=== PATIENT | male | born 1995 | race African-American/Black ===

== ENCOUNTER → 2022-10-06 | Outpatient (CLI) | payer MEDICAID, SELFPAY ==
[2022-10-06 23:42] LABS: Bacteria 0 SEEN /hpf (None Seen); Mucous, Urine 0 SEEN /hpf (<or=2+); Squamous Epithelial Cells - UA 0 SEEN /hpf (0-5)
[2022-10-06 23:45] LABS: Color, Urine Yellow (Yellow); Glucose, Dipstick Normal (Normal); Ketone-Dipstick Negative (Negative); Leukocyte Esterase-Dipstick 25 /ul (Negative); Nitrite-Dipstick Negative (Negative); Occult Blood-Urine Negative /ul (Negative); Protein-Dipstick Negative (Negative); Specific Gravity, Urine 1.015 (1.002-1.030); Urine Bilirubin Dipstick Negative (Negative); Urine Clarity Clear (Clear); Urine Urobilinogen Normal (Normal); Urine pH 6.5 (5.0 - 8.0)
[2022-10-06 23:56] LABS: Red Blood Cells-Urine 0-5 SEEN /hpf (0-5); White Blood Cells 0-5 SEEN /hpf (0-5)
[2022-10-07 02:36] LABS: Chlamydia Trachomatis by PCR Negative (Negative); Neisserai gonorrhoeae by PCR Negative (Negative); Probe Check PASS; Sample Adequacy Control PASS; Specimen Processing Control PASS
== END | disposition home or self-care (01) ==
PROVIDERS: Visit Provider Physician Assistant
DX: R36.9 Urethral discharge, unspecified (principal)
CPT/HCPCS: 81001; 87077; 87086; 87088; 87186; 87491; 87591

== ENCOUNTER 2022-12-22 08:26 | Emergency (ER) | payer MEDICAID, SELFPAY ==
[2022-12-22 08:27] VITALS: BP 124/88; PULSE 64; RESP 18; TEMP 36.6; O2SAT 100; BMI 23.1
--- NOTE | 2022-12-22 08:37 | ED.RN ---
pain to left leg. pt does also report pain to left chest and keeps placing hand on it and rubbing it. reports raidiates through left shoulder/upper arm. called for ekg and placed on monitor while waiting to be seen
--- NOTE | 2022-12-22 08:44 | EKG12_ITS ---
Test Reason : Blood Pressure : / mmHG Vent. Rate : 052 BPM Atrial Rate : 052 BPM P-R Int : 142 ms QRS Dur : 098 ms QT Int : 410 ms P-R-T Axes : 011 007 017 degrees QTc Int : 381 ms Sinus bradycardia Otherwise normal ECG Confirmed by ERIKA RUIZ, JESSE ([id number]), editor & co founder TUNG GONZALEZ ([id number]) on 12/23/2022 9:52:57 AM Referred By: STEPHANIE Confirmed By:JESSE JAMES MD
--- NOTE | 2022-12-22 09:23 | EX.ED.DYSGE1 ---
HPI History of Present Illness Chief Complaint: Anxiety Narrative Narrative: 27-year-old male presenting with left leg pain. He describes it in the calf. 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 He states his knees were locked and he started to get lightheaded and dizzy. He did not fall. He does feel like he may have had a panic reaction. He has a distant history of anxiety but is not on any medication. No chest pain or shortness of breath. Otherwise well prior to the incident. [facility] Medical History Urethral discharge in male Allergy/AdvReac Type Severity Reaction Status Date / Time No Known Allergies Allergy Verified 12/22/22 08:41 Social History Smoking Status: Never smoker ROS ROS ED Constitutional Constitutional ED: Denies chills, fever(s) or sweats Eyes Eyes: Denies blurry vision or change in vision ENT ENT ED: Denies ear pain or sore throat Cardiovascular Cardiovascular: Reports palpitations and other Details: Lightheadedness ; Denies racing heartbeat Respiratory/Chest Respiratory/Chest: Denies cough, dyspnea or sputum Gastrointestinal Gastrointestinal: Denies abdominal pain, constipation, diarrhea, nausea or vomiting Genitourinary Genitourinary ED: Denies dysuria, hematuria or urinary frequency Musculoskeletal Musculoskeletal: Denies arthralgias, myalgias or neck pain Integumentary Denies abscess, Abrasions or rash Neurologic Neurologic: Denies headache(s), paresthesias or weakness Psychiatric Psychiatric: Denies anxiety, depression, suicidal ideation or suicidal thoughts Endocrine Endocrinology: Denies polydipsia or polyuria EXAM Physical Exam Const Vital Signs: 12/22/22 08:27 12/22/22 08:39 Temperature 97.8 F Temperature Source Temporal Pulse Rate 64 Respiratory Rate 18 Respiratory Effort Normal Respiratory Pattern Normal Blood Pressure 124/88 H Blood Pressure Mean 100 Pulse Ox 100 Oxygen Delivery Method Room Air General Appearance ED: Negative for pallor HEENT Reports normocephalic, head/scalp atraumatic and moist mucous membranes Eyes PERRL and EOMs intact bilaterally Neck no lymphadenopathy and supple Chest Wall inspection of chest normal and palpation of chest normal Resp normal respiratory effort and clear to auscultation bilaterally Auscultation: Negative for rales, rhonchi or wheezes Cardio regular rate and regular rhythm GI normal to inspection, nondistended, normoactive bowel sounds and non-distended Auscultation: normoactive bowel sounds Palpation: soft Narrative: Deferred Extremity normal to inspection Extremity Narrative: Left calf mildly tender. Pereira is soft. No cords palpated. Patient able to stand and walk without difficulty. General Extremety ED: Negative for edema General Extremity: Negative for edema Neuro oriented x3 and CN's II-XII intact bilaterally Sensorium / Orientation: alert Motor Exam: strength 5/5 throughout Psych mental status grossly normal Attitude: No agitated Skin no rashes or lesions noted and no wounds General Skin Exam: Negative for jaundice or pallor MDM MDM MDM Narrative Medical decision making narrative: 27-year-old male initially felt he was having an anxiety attack. 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 He feels well now he took ibuprofen for the leg pain and it is improving. He had an EKG which showed sinus bradycardia at 52 bpm without sign of ischemic change or dysrhythmia on my interpretation. At this point I do not believe he needs any blood work or imaging. He is stable for discharge. He request a work note. This was provided. Impression: 1 near syncope Lab Data Attestation: I reviewed the patient's lab results. Discharge Plan Triage Chief Complaint: Anxiety ED Provider: Jose De Jesus Stapleton Dx/Rx/DC Orders Instructions: ED Near-Fainting, Uncertain Cause Stand Alone Forms: ED Work / School Excuse Referrals: [facility] [Provider Group] - 3-5 Days Disposition Disposition: Home, Self Care
[2022-12-22 09:35] VITALS: BP 128/74; PULSE 51; RESP 16; O2SAT 99
== END 2022-12-22 09:36 | disposition home or self-care (01) ==
LOC: ED 09:34
PROVIDERS: Emergency Provider Student in an Organized Health Care Education/Training Program; PCP Family Medicine; Visit Provider Student in an Organized Health Care Education/Training Program
DX: R55 Syncope and collapse (principal)
CPT/HCPCS: 93005; 99283

== ENCOUNTER → 2022-12-23 | Outpatient (CLI) | payer MEDICAID, SELFPAY ==
[2022-12-23 17:46] LABS: Absolute Lymphocyte Count 2.39 X10^3/uL (0.83-4.51); Absolute Neutrophil Count 5.2 X10^3/uL (2.0-7.7); Basophil# 0.03 X10^3/uL; Basophil% 0.4 % (0-1); Eosinophil# 0.03 X10^3/uL; Eosinophils% 0.4 % (0-5); Hematocrit 42.3 % (40-54); Hemoglobin 14.3 g/dL (13.0-16.5); Lymphocyte # 2.39 X10^3/ul (0.83-4.51); Lymphocyte % 29.7 % (19-41); Mean Corp Hgb Conc 33.8 g/dL (32-36); Mean Corpuscular Hgb 30.5 pg (27.0-32.0); Mean Corpuscular Volume 90.2 fL (80-94); Mean Platelet Vol. 10.7 fl (6.2-12.0); Monocyte# 0.39 X10^3/uL; Monocyte% 4.8 % (0-10); NRBC Flagged by Analyzer 0 % (0-5); Neutrophil # 5.19 X10^3/uL (2.7-7.7); Neutrophil % 64.5 % (47-70); Platelet Count 282 K/mm3 (150-450); RBC Distribution Width CV 12.1 % (11.6-14.6); RBC Distribution Width SD 39.1 fl (35.1-43.9); Red Blood Count 4.69 M/mm3 (4.6-6.2); White Blood Count 8.1 K/mm3 (4.4-11.0)
[2022-12-23 18:22] LABS: ALB/GLOB Ratio 1.3 RATIO (0.9-2.4); AST(SGOT) 14 U/L (15-37); Alanine Aminotransfer ALT/SGPT 14 U/L (16-61); Albumin, Serum 4.3 g/dL (3.2-5.0); Alkaline Phosphatase 86 U/L (45-117); Anion Gap 5 (5-15); BUN 10 mg/dL (7-18); BUN/Creat Ratio 10.3 RATIO (10-20); Calcium,Total 9.4 mg/dL (8.5-10.1); Chloride 106 mmol/L (98-107); Creatinine, Serum 0.97 mg/dL (0.70-1.30); EST Glomerular Filtration Rate 97 mL/min (>60); Est Glom Filt Rate - Afr Amer 118 mL/min (>60); Globulin 3.3 g/dL (2.2-4.2); Glucose 91 mg/dL (74-106); Potassium 3.9 mmol/L (3.5-5.1); Protein, Total 7.6 g/dL (6.4-8.2); Sodium Level 142 mmol/L (136-145)
== END | disposition home or self-care (01) ==
PROVIDERS: PCP Family Medicine; Visit Provider Family Medicine
DX: Z86.19 Personal history of other infectious and parasitic diseases (principal)
CPT/HCPCS: 36415; 80053; 85025

== ENCOUNTER → 2023-01-27 | Outpatient (CLI) | payer MEDICAID, SELFPAY ==
[2023-01-28 21:07] LABS: HCV Quant. RNA PCR HCV Not Detected IU/mL (.)
== END | disposition home or self-care (01) ==
LOC: MFPLAB 10:17
PROVIDERS: PCP Family Medicine; Visit Provider Family Medicine
DX: Z86.19 Personal history of other infectious and parasitic diseases (principal)
CPT/HCPCS: 36415; 87522

== ENCOUNTER → 2023-02-21 | Outpatient (CLI) | payer MEDICAID, SELFPAY ==
--- NOTE | 2023-02-21 08:53 | US_ITS ---
STUDY: ABDOMINAL ULTRASOUND - RIGHT UPPER QUADRANT REASON FOR VISIT: Male, 27 years old History Hep C -- -- w/ elastography TECHNIQUE: Ultrasound evaluation of the right upper quadrant was performed with real-time and static marroquin-scale imaging. TECHNICAL QUALITY: Adequate. COMPARISON: None. FINDINGS: Liver: The liver measures 14.5 cm. There is normal echogenicity of the liver. The bile ducts are within normal limits. There is hepatic color flow. The direction of portal flow is hepatopetal. There is no demonstrated mass lesion. Gallbladder: Normal distended gallbladder. The gallbladder wall measures 1.2 mm. There is a negative sonographic Moscoso''s sign. There is no pericholecystic fluid. There are no gallstones. Multiple small gallbladder polyps are seen. The largest measures 7 mm x 7 mm x 5 mm. Common Bile Duct (C.B.D.): The common bile duct measures 3.7 mm. Pancreas: Normal size of the head, body and tail of the pancreas. There is normal echogenicity of the pancreas. There is no demonstrated pancreatic mass or cyst. Right Kidney: Normal size of the right kidney. The right kidney measures 10 cm x 5.3 cm x 5 cm. Normal renal cortex. The right cortex measures 1.5 cm. There is no demonstrated renal mass or cyst. There is no right hydronephrosis. US/Abdomen Limited IMPRESSION: Multiple small gallbladder polyps. Electronically Signed: Benji Rowe MD at 9:56 EDT ,
--- NOTE | 2023-02-21 08:54 | US_ITS ---
STUDY: ABDOMINAL ULTRASOUND - ELASTOGRAPHY REASON FOR VISIT: Male, 27 years old. History of hepatitis C. TECHNIQUE: Liver stiffness measurements were obtained on a FireID RS 85 ultrasound machine using a CA 1-7 probe following the SRU guidelines. 3 measurements were obtained using a 2-D-SWE method. TheIQR/M was 22% suggesting a quality data set. TECHNICAL QUALITY: Adequate. COMPARISON: Comparison is made with prior study done earlier in the day. FINDINGS: Liver: There is no demonstrated mass lesion. Median liver stiffness measured 7.8 kPa. Abdomen: There is no demonstrated mass lesion. US/Elastography Parenchyma/Organ IMPRESSION: Liver stiffness measures 7.8 kPa compatible with F2-F3 (Mild to moderate liver fibrosis) Metavir score. Electronically Signed: Benji Rowe MD at 10:06 EDT ,
== END | disposition home or self-care (01) ==
LOC: US 08:52
PROVIDERS: PCP Family Medicine; Referring Provider Family Medicine; Visit Provider Family Medicine
DX: Z86.19 Personal history of other infectious and parasitic diseases (principal)
CPT/HCPCS: 76705; 76981

== ENCOUNTER → 2023-03-03 | Outpatient (CLI) | payer MEDICAID, SELFPAY ==
[2023-03-03 15:33] LABS: Absolute Lymphocyte Count 1.87 X10^3/uL (0.83-4.51); Absolute Neutrophil Count 5.6 X10^3/uL (2.0-7.7); Basophil# 0.04 X10^3/uL; Basophil% 0.5 % (0-1); Eosinophil# 0.02 X10^3/uL; Eosinophils% 0.2 % (0-5); Hematocrit 45.6 % (40-54); Hemoglobin 15.2 g/dL (13.0-16.5); Lymphocyte # 1.87 X10^3/ul (0.83-4.51); Lymphocyte % 23.2 % (19-41); Mean Corp Hgb Conc 33.3 g/dL (32-36); Mean Corpuscular Hgb 30.5 pg (27.0-32.0); Mean Corpuscular Volume 91.4 fL (80-94); Mean Platelet Vol. 10.6 fl (6.2-12.0); Monocyte# 0.54 X10^3/uL; Monocyte% 6.7 % (0-10); NRBC Flagged by Analyzer 0 % (0-5); Neutrophil # 5.56 X10^3/uL (2.7-7.7); Neutrophil % 69.2 % (47-70); Platelet Count 317 K/mm3 (150-450); RBC Distribution Width SD 40.3 fl (35.1-43.9); Red Blood Count 4.99 M/mm3 (4.6-6.2); White Blood Count 8.1 K/mm3 (4.4-11.0)
[2023-03-03 16:07] LABS: ALB/GLOB Ratio 1.3 RATIO (0.9-2.4); AST(SGOT) 10 U/L (15-37); Alanine Aminotransfer ALT/SGPT 24 U/L (16-61); Albumin, Serum 4.4 g/dL (3.2-5.0); Alkaline Phosphatase 80 U/L (45-117); Anion Gap 4 (5-15); BUN 9 mg/dL (7-18); BUN/Creat Ratio 8.9 RATIO (10-20); Calcium,Total 9.6 mg/dL (8.5-10.1); Chloride 107 mmol/L (98-107); Creatinine, Serum 1.01 mg/dL (0.70-1.30); EST Glomerular Filtration Rate 93 mL/min (>60); Est Glom Filt Rate - Afr Amer 112 mL/min (>60); Globulin 3.4 g/dL (2.2-4.2); Glucose 73 mg/dL (74-106); Potassium 4.5 mmol/L (3.5-5.1); Protein, Total 7.8 g/dL (6.4-8.2); Sodium Level 141 mmol/L (136-145); Thyroid Stim Hormone (TSH) 1.28 uIU/mL (0.358-3.74)
== END | disposition home or self-care (01) ==
LOC: MTLAB 12:45
PROVIDERS: PCP Family Medicine; Referring Provider Family Medicine; Visit Provider Family Medicine
DX: R42 Dizziness and giddiness (principal)
CPT/HCPCS: 36415; 80053; 84443; 85025

== ENCOUNTER 2023-03-12 16:54 | Emergency (ER) | payer MEDICAID, SELFPAY ==
[2023-03-12 16:55] VITALS: BP 127/87; PULSE 64; RESP 16; TEMP 36.6; O2SAT 99; BMI 22.4
--- NOTE | 2023-03-12 18:31 | EDS_ITS ---
HPI History of Present Illness Chief Complaint: Lower Extremity Injury [facility] Medical History Urethral discharge in male Allergy/AdvReac Type Severity Reaction Status Date / Time No Known Allergies Allergy Verified 03/12/23 16:56 Social History Smoking Status: Never smoker EXAM Physical Exam Const Vital Signs: 03/12/23 16:55 Temperature 98 F Temperature Source Temporal Pulse Rate 64 Respiratory Rate 16 Blood Pressure 127/87 H Blood Pressure Mean 100 Pulse Ox 99 Oxygen Delivery Method Room Air MDM [facility] MDM Narrative Medical decision making narrative: HISTORY OF PRESENT ILLNESS: 27-year-old male here for left calf muscle pain. The patient states Patient denies active cancer, being bedridden for greater than 3 days, denies unilateral leg swelling, denies any varicose veins, denies any calf tenderness, denies any edema. Denies major surgery within 12 weeks, recent paralysis, previous DVT. REVIEW OF SYSTEMS: Pertinent positives: Left calf pain Pertinent negatives: PHYSICAL EXAM: Nursing triage notes reviewed, Vital signs reviewed Constitutional: please see mdm HENT: MMM Eyes: Pupils equal round and reactive to light, Extraocular muscles intact Neck: No stridor, no JVD, full neck ROM Lungs: Clear to auscultation, No wheezing or rales. No increased work of breathing, no conversational dyspnea, no accessory muscle use, no nasal flaring. No respiratory distress noted Heart: Regular rate and rhythm, No murmurs, No rubs and No gallops, 2+ distal pulses (radial, femoral, posterior tibial) in all extremities Abdomen: Soft, there is no tenderness, rigidity, rebound or guarding, no obvious peritoneal signs, no palpable pulsatile abdominal masses, no auscultated abdominal bruit : No CVAT Extremities: No edema Neuro: No focal neurological deficits, cranial nerves II through XII intact, 5/5 strength in all extremities. Intact sensation to light touch in all extremities, 2+ reflexes bilateral patella tendons. Normal gait. No ataxia. Skin: No rash or lesions noted MEDICAL DECISION MAKING: Chief Complaint: External records reviewed: No recent advanced imaging of the involved extremity MDM Narrative: Patient was hemodynamically stable, afebrile, nontoxic-appearing. Exam I considered the following differential diagnosis: Factors affecting care: None Social determinants of health: Never smoker History obtained from others: Shared decision making: I will have a discussion with the patient and or visitors regarding risk/benefits of further testing or admission. They will be made aware of of the risk/benefits inherent in this decision they will be given the opportunity to voice understanding. Consults: Discharge Plan Triage Chief Complaint: Lower Extremity Injury ED Provider: Keegan Engle Dx/Rx/DC Orders Primary Care Provider: Jayy Malagon Referrals: Jayy Malagon MD [Primary Care Provider] -
--- NOTE | 2023-03-12 18:31 | EX.ED.DYSGE1 ---
HPI History of Present Illness Chief Complaint: Lower Extremity Injury [facility] Medical History Urethral discharge in male Allergy/AdvReac Type Severity Reaction Status Date / Time No Known Allergies Allergy Verified 03/12/23 16:56 Social History Smoking Status: Never smoker EXAM Physical Exam Const Vital Signs: 03/12/23 16:55 Temperature 98 F Temperature Source Temporal Pulse Rate 64 Respiratory Rate 16 Blood Pressure 127/87 H Blood Pressure Mean 100 Pulse Ox 99 Oxygen Delivery Method Room Air MDM MDM MDM Narrative Medical decision making narrative: HISTORY OF PRESENT ILLNESS: 27-year-old male here for left calf muscle pain. The patient states Patient denies active cancer, being bedridden for greater than 3 days, denies unilateral leg swelling, denies any varicose veins, denies any calf tenderness, denies any edema. Denies major surgery within 12 weeks, recent paralysis, previous DVT. REVIEW OF SYSTEMS: Pertinent positives: Left calf pain Pertinent negatives: No chest pain, shortness of breath PHYSICAL EXAM: Nursing triage notes reviewed, Vital signs reviewed Constitutional: please see mdm Extremities: No edema, no unilateral leg swelling. No obvious calf tenderness. There was some mild tenderness over the left Achilles tendon. Negative Homans' sign, negative Issa sign. Neuro: Intact sensation L1-S1 dermatomal distributions. Intact 5/5 strength in hip flexion (T12-L3). Knee extension (L2-L4). Ankle dorsiflexion (L4-L5). Ankle plantar flexion (S1). Great toe extension (L5). 2+ patellar and Achilles DTRs. Skin: No rash or lesions noted MEDICAL DECISION MAKING: Chief Complaint: Calf pain External records reviewed: No recent advanced imaging of the involved extremity MDM Narrative: Patient was hemodynamically stable, afebrile, nontoxic-appearing. Exam without stigmata of DVT or PE I considered the following differential diagnosis: DVT, gastrocnemius strain, Achilles tendinitis I obtained ultrasound showed no evidence of DVT. Patient likely suffered from Achilles tendinitis versus gastrocnemius or soleus muscle strain. Gave NSAID instructions and return precautions. Factors affecting care: None Social determinants of health: Never smoker History obtained from others: Shared decision making: I will have a discussion with the patient and or visitors regarding risk/benefits of further testing or admission. They will be made aware of of the risk/benefits inherent in this decision they will be given the opportunity to voice understanding. Consults: None Discharge Plan Triage Chief Complaint: Lower Extremity Injury ED Provider: Keegan Engle Dx/Rx/DC Orders Clinical Impression: Achilles tendinitis, Gastrocnemius muscle strain Instructions: ED Muscle Strain, Extremity Primary Care Provider: Jayy Malagon Referrals: Jayy Malagon MD [Primary Care Provider] - Activity Restrictions/Additional Instructions: Thank you for trusting us with your care today! Please take Tylenol (2 pills, 650 mg), ibuprofen (2 pills, 400 mg) every 6 hours as needed for pain and fever control. Please return to the emergency department if your symptoms change or worsen. Please follow with your primary care physician for further outpatient evaluation and management. Disposition Disposition: Home, Self Care
--- NOTE | 2023-03-12 19:00 | US_ITS ---
INDICATION: LT CALF PAIN EXAMINATION: US Venous Duplex LE Unilat / Limited TECHNIQUE: Ott scale, pulse wave, and color flow Doppler imaging was performed of the lower extremity venous system. The left greater saphenous, common femoral, femoral, and popliteal veins were interrogated. COMPARISON: None. FINDINGS: There is normal compression, augmentation, and signal throughout the visualized deep lower extremity veins. No mass or fluid collection. US/Venous Duplex Imag/Limited/Uni IMPRESSION: No sonographic evidence of deep venous thrombosis. Electronically Signed: Michael Bird MD at 19:57 EDT ,
== END 2023-03-12 20:34 | disposition home or self-care (01) ==
PROVIDERS: Emergency Provider Emergency Medicine; PCP Family Medicine; Visit Provider Emergency Medicine
DX: M76.62 Achilles tendinitis, left leg (principal); S86.112A Strain of other muscle(s) and tendon(s) of posterior muscle group at lower leg level, left leg, initial encounter; X58.XXXA Exposure to other specified factors, initial encounter
CPT/HCPCS: 93971; 99282

== ENCOUNTER 2023-10-31 17:02 | Emergency (ER) | payer MEDICAID, SELFPAY ==
[2023-10-31 17:03] VITALS: PULSE 67; RESP 18; TEMP 36.2; O2SAT 98; BMI 24.3
--- NOTE | 2023-10-31 17:49 | EDS_ITS ---
HPI <KALIN Melendez - Last Filed: 10/31/23 18:19> History of Present Illness Chief Complaint: Laceration Narrative Narrative: Patient presenting today due to a laceration to his right index finger. He reports that he was cutting a box with a pair scissors and partially went through his fingernail. He is not on any blood thinners, tetanus is not up-to-date. He denies any other injury. PFSH <KALIN Melendez - Last Filed: 10/31/23 18:19> [facility] Medical History Urethral discharge in male Allergy/AdvReac Type Severity Reaction Status Date / Time No Known Allergies Allergy Verified 10/31/23 17:02 Social History Smoking Status: Never smoker ROS <KALIN Melendez - Last Filed: 10/31/23 18:19> ROS ED Constitutional Constitutional ED: Denies chills or fever(s) Cardiovascular Cardiovascular: Denies chest pain Respiratory/Chest Respiratory/Chest: Denies cough or dyspnea Gastrointestinal Gastrointestinal: Denies abdominal pain, nausea or vomiting Musculoskeletal Musculoskeletal: Denies arthralgias or myalgias Integumentary Reports laceration Neurologic Neurologic: Denies weakness EXAM <KALIN Melendez - Last Filed: 10/31/23 18:19> Physical Exam Const Vital Signs: 10/31/23 17:03 Temperature 97.1 F L Temperature Source Temporal Pulse Rate 67 Respiratory Rate 18 Pulse Ox 98 Oxygen Delivery Method Room Air Positive well nourished, well developed and no apparent distress General Appearance ED: well developed HEENT Reports normocephalic and head/scalp atraumatic Mouth ED: Yes moist mucous membranes normal Eyes PERRL and EOMs intact bilaterally Neck full ROM and supple Chest Wall inspection of chest normal Resp normal respiratory effort and clear to auscultation bilaterally Cardio regular rate and regular rhythm GI soft to palpation, non-tender, non-distended and no masses Back/Spine normal ROM and normal to inspection Extremity full ROM Extremity Narrative: Small 0.25 cm linear laceration to the right second fingernail, no bleeding, no laceration to the fingertip. Neuro oriented x3, CN's II-XII intact bilaterally, moves all extremities, no focal motor deficits and no sensory deficits noted Sensorium / Orientation: awake and alert Psych mental status grossly normal and thought process normal Skin no rashes or lesions noted and no wounds <Josue Seymour MD - Last Filed: 10/31/23 18:30> Physical Exam Const Vital Signs: 10/31/23 17:03 Temperature 97.1 F L Temperature Source Temporal Pulse Rate 67 Respiratory Rate 18 Pulse Ox 98 Oxygen Delivery Method Room Air [facility] <KALIN Melendez - Last Filed: 10/31/23 18:19> [facility] Narrative Medical decision making narrative: Patient presenting due to laceration to his right index finger. He has a small cut through the tip of the fingernail, no active bleeding, no laceration to the fingertip. No nail avulsion. Tetanus will be updated. The fingernail does not need to be removed, patient's fingertip and nail were cleaned with an alcohol wipe and a small amount of Dermabond was applied to the nail. Patient has been educated on signs of infection to look out for and reasons to return. He will be discharged home in stable condition and is comfortable with plan. <Josue Seymour MD - Last Filed: 10/31/23 18:30> [facility] Narrative Medical decision making narrative: Patient presenting due to laceration to his right index finger. He has a small cut through the tip of the fingernail, no active bleeding, no laceration to the fingertip. No nail avulsion. Tetanus will be updated. The fingernail does not need to be removed, patient's fingertip and nail were cleaned with an alcohol wipe and a small amount of Dermabond was applied to the nail. Patient has been educated on signs of infection to look out for and reasons to return. He will be discharged home in stable condition and is comfortable with plan. Dr. Seymour: I have personally performed a face to face assessment of the patient and have reviewed the PAPO Note. I performed a substantive portion of the visit including all aspects of the following. My lennon findings include: History is laceration to tip of right index finger nail with a jukebox checker Exam is GCS 15. ABCs intact. 0.5 cm laceration or less to tip of right index finger/fingernail, no active bleeding. No large subungual hematoma. Medical Decision Making: Update tetanus immunization. Cleanse wound, closed with Dermabond to keep nail together. Patient informed of risk of irregular nail growing out over laceration and nailbed. I do not feel that suturing is indicated or nail removal. Follow-up primary care. Disposition is discharged home in stable condition. Other additions or changes: [None] History & Record Review Discussion w/independent historian: Patient Discharge Plan Triage Chief Complaint: Laceration ED Midlevel Provider: Linnea Metcalf ED Provider: Josue Seymour Dx/Rx/DC Orders Clinical Impression: Laceration Instructions: ED Laceration, Skin Adhesive Primary Care Provider: Otilia Bailey Referrals: Jayy Malagon MD [Med Staff - Chief Operator Reformer] - As Needed Activity Restrictions/Additional Instructions: Return or follow-up with your PCP for any signs of infection. Disposition Disposition: Home, Self Care Discharge Date/Time: 10/31/23 18:07
[2023-10-31] MEDS: Diphth,Pertuss(Acell),Tet Vac 0.5 ML Vial IM (17:59)
--- OUTSIDE RECORDS SUMMARY | 2023-10-31 18:04 | XMS RPT_ITS | CCD ---
Author Name Unknown Address [address] [place] [address] Organization [facility] Care Team Providers Care Bacteriologist Pharmaceutical Name Role Phone Inocencio Christianson Unavailable [phone] No, Physician Primary Care Provider Unavailabl e No, Physician Primary Care Provider Unavailabl e NO, PHYSICIAN Primary Care Unavailable OTILIO MENDOZA Attending Unavailab le No, Physician Primary Care Provider Unavailabl e KAY ANGULO Attending Unavailable LUCERO HILLIARDOTHY F Referring Unavailable INGE JENKINS Attending Unavailable SELF, SELF Referring Unavailable KAY ANGULO Attending Unavailable KAY ANGULO Referring Unavailable KAY ANGULO Attending Unavailable MARTÍN ZAIN Primary Care Unavailable SELF, SELF Referring Unavailable KAY ANGULO Attending Unavailable HILLIARD, MUSA F Referring Unavailable MARTÍNZAIN RODRIGUEZ Attending Unavailable NO, PHYSICIAN Primary Care Unavailable DUNCAN CONNOLLY Primary Care Unavailable MARTÍNZAIN RODRIGUEZ Attending Unavailable DUNCAN CONNOLLY Primary Care Unavailable MARTÍNZAIN Attending Unavailable MARTÍNZAIN RODRIGUEZ Attending Unavailable MARTÍN, ZAIN Referring Unavailable DUNCAN CONNOLLY Primary Care Unavailable DUNCAN CONNOLLY Primary Care Unavailable ZAIN RESENDIZ Admitting Unavailable SATNAM ANDRADE Attending Unavailable DUNCAN CONNOLLY Primary Care Unavailable DUNCAN CONNOLLY Primary Care Unavailable LIANA LUCAS Attending Unavailable Medications Current Medications Medication Drug Class(es) Dates Sig (Normalized) Sig (Original) [id number] 200 actuat albuterol 0.09 mg/actuat metered dose inhaler (2 sources) beta2-Adrenergic Agonist Start: 09-01-2020 End: 09-01-2021 take 2 puff(s) by inhalation every six hours as needed albuterol 90 mcg/actuation inhaler Indications: COVID-19 Inhale 2 (two) puffs every 6 (six) hours as needed . 1 Inhaler 0 09/01/2020 09/01/2021 Active albuterol 90 mcg/actuation inhaler (7 sources) Start: 09-01-2020 End: 09-01-2021 take 2 puff(s) by inhalation every six hours as needed albuterol 90 mcg/actuation inhaler Indications: COVID-19 Inhale 2 (two) puffs every 6 (six) hours as needed . 1 Inhaler 0 09/01/2020 09/01/2021 Active amoxicillin 875 mg oral tablet (1 source) Penicillin-class Antibacterial Start: 05-12-2020 End: 05-22-2020 take 1 tablet by mouth twice daily amoxicillin (AMOXIL) 875 MG tablet Indications: Strep pharyngitis Take 1 (one) tablet (875 mg total) by mouth 2 (two) times a day for 10 days . 20 tablet 0 05/12/2020 05/22/2020 Active cyclobenzaprine hydrochloride 10 mg oral tablet (1 source) Muscle Relaxant Start: 10-16-2020 End: 10-21-2020 take 1 tablet by mouth three times daily cyclobenzaprine (FLEXERIL) 10 MG tablet Take 1 (one) tablet (10 mg total) by mouth 3 (three) times a day for 15 doses . 15 tablet 0 10/16/2020 10/21/2020 Active dexamethasone 1 mg/ml / tobramycin 3 mg/ml ophthalmic suspension (4 sources) Aminoglycoside Antibacterial, Corticosteroid Start: 12-31-2020 take 1 drop(s) into the eye(s) three times daily tobramycin-dexameth asone (TOBRADEX) 0.3-0.1 % ophthalmic suspension INSTILL 1 DROP INTO AFFECTED EYE 3 TIMES A DAY 0 12/31/2020 Active fluconazole 150 mg oral tablet (2 sources) Azole Antifungal Start: 01-13-2021 End: 01-13-2021 take 1 tablet by mouth once fluconazole (DIFLUCAN) 150 MG tablet Indications: Urethritis Take 1 (one) tablet (150 mg total) by mouth once for 1 dose . 1 tablet 0 01/13/2021 01/13/2021 Active fluticasone propionate 0.05 mg/actuat metered dose nasal spray (9 sources) Corticosteroid Start: 09-01-2020 End: 09-01-2021 take 2 spray(s) nasal route once daily fluticasone propionate (FLONASE) 50 mcg/actuation nasal spray Indications: COVID-19 Instill 2 (two) sprays into each nostril daily . 16 g 0 09/01/2020 09/01/2021 Active loteprednol etabonate 5 mg/ml ophthalmic suspension (3 sources) Start: 02-07-2021 take 1 drop(s) into the eye(s) three times daily loteprednol (LOTEMAX) 0.5 % ophthalmic suspension Indications: Allergic conjunctivitis of right eye Administer 1 (one) drop to the right eye 3 (three) times a day . 5 mL 0 02/07/2021 Active olopatadine 1 mg/ml ophthalmic solution (6 sources) Histamine-1 Receptor Inhibitor Start: 01-07-2021 olopatadine (PATANOL) 0.1 % ophthalmic solution predniSONE 20 mg oral tablet (1 source) Start: 10-16-2020 End: 10-21-2020 take 2 tablets by mouth once daily predniSONE (Deltasone) 20 MG tablet Take 2 (two) tablets (40 mg total) by mouth daily for 5 days . 10 tablet 0 10/16/2020 10/21/2020 Active Completed/Discontinued Medications Medication Drug Class(es) Dates Sig (Normalized) Sig (Original) fluorometholone acetate 1 mg/ml ophthalmic suspension (3 sources) Corticosteroid Start: 02-06-2021 End: 02-07-2021 take 1 drop(s) into the eye(s) three times daily fluorometholone (EFLONE) 0.1 % ophthalmic suspension Indications: Allergic conjunctivitis of right eye Administer 1 (one) drop to both eyes 3 (three) times a day . 5 mL 0 02/06/2021 02/07/2021 Discontinued (Cost of medication) Problems Problem Classification Problem Date Documented Date Episodic/Chronic Bacterial infection; unspecified site (2 sources) Other specified bacterial agents as the cause of diseases classified elsewhere; Translations: [Other specified bacterial agents as the cause of diseases classified elsewhere] Onset: 08-10-2022 Episodic Genitourinary symptoms and ill-defined conditions (1 source) Dysuria; Translations: [Dysuria] Episodic Immunizations and screening for infectious disease (1 source) Contact with and (suspected) exposure to other viral communicable diseases; Translations: [Close Exposure to Covid-19 Virus] Episodic Inflammation; infection of eye (except that caused by tuberculosis or sexually transmitteddisease) (1 source) Allergic conjunctivitis of right eye; Translations: [Acute atopic conjunctivitis, right eye] Episodic Inflammation; infection of eye (except that caused by tuberculosis or sexually transmitteddisease) (2 sources) Allergic conjunctivitis of right eye; Translations: [Allergic conjunctivitis of right eye] Nonmalignant breast conditions (2 sources) Pain of breast; Translations: [Discharge from nipple] Episodic Other circulatory disease (2 sources) Elevated blood pressure; Translations: [Elevated blood pressure reading] Episodic Other nervous system disorders (1 source) Paresthesia of upper limb; Translations: [Numbness and tingling in left arm] Episodic Other upper respiratory infections (2 sources) Chronic sinusitis, unspecified; Translations: [Chronic sinusitis, unspecified] Onset: 08-18-2022 Chronic Other upper respiratory infections (2 sources) Pharyngitis; Translations: [Streptococcal sore throat] Episodic Spondylosis; intervertebral disc disorders; other back problems (1 source) Cervical radiculopathy; Translations: [Cervical radiculopathy] Chronic Unclassified (1 source) COVID-19; Translations: [COVID-19] Urinary tract infections (2 sources) Urethritis; Translations: [Urethritis] Episodic Viral infection (1 source) Viral disease; Translations: [Viral illness] Episodic Results Test Name Value Interpretation Reference Range Facil ity Vital Signs Date Time Vital Sign Value Performing Clinician Faci lity 01-13-2021 13:39-0400 BMI (Body Mass Index) 27.52 kg/m2 Satnam [facility] 01-13-2021 13:39-0400 Body Temperature 98.01 [degF] [facility] 01-13-2021 13:39-0400 Body weight 82.1 kg [facility] 01-13-2021 13:39-0400 BP Diastolic 93 mm[Hg] [facility] 01-13-2021 13:39-0400 BP Systolic 140 mm[Hg] Satnam [facility] 01-13-2021 13:39-0400 Pulse (Heart Rate) 77 /min [facility] 01-13-2021 13:39-0400 Pulse Oximetry 97 % [facility] 01-13-2021 13:39-0400 Respiratory Rate 16 /min Satnam Andrade [facility] 10-16-2020 15:49-0500 BMI (Body Mass Index) 26.3 kg/m2 Rodger [facility] 10-16-2020 15:49-0500 Body Temperature 97.7 [degF] [facility] 10-16-2020 15:49-0500 Body weight 78.47 kg [facility] 10-16-2020 15:49-0500 BP Diastolic 95 mm[Hg] [facility] 10-16-2020 15:49-0500 BP Systolic 146 mm[Hg] [facility] 10-16-2020 15:49-0500 Height 172.7 cm [facility] 10-16-2020 15:49-0500 Pulse (Heart Rate) 69 /min [facility] 10-16-2020 15:49-0500 Pulse Oximetry 98 % [facility] 10-16-2020 15:49-0500 Respiratory Rate 16 /min [facility] 10-16-2020 15:29-0500 BMI (Body Mass Index) 28.29 kg/m2 Alondra Santana [facility] 10-16-2020 15:29-0500 Body Temperature 98.1 [degF] Alondrashana Santana [facility] 10-16-2020 15:29-0500 Body weight 77.11 kg Alondrashana Santana [facility] 10-16-2020 15:29-0500 BP Diastolic 95 mm[Hg] Alondra Santana [facility] 10-16-2020 15:29-0500 BP Systolic 153 mm[Hg] Alondra Santana [facility] 10-16-2020 15:29-0500 Height 165.1 cm Alondrashana Santana [facility] 10-16-2020 15:29-0500 Pulse (Heart Rate) 69 /min Alondrashana Santana [facility] 10-16-2020 15:29-0500 Pulse Oximetry 95 % Alondra Santana [facility] 10-16-2020 15:29-0500 Respiratory Rate 18 /min Alondra Santana [facility] 09-01-2020 18:08-0500 BMI (Body Mass Index) 25.85 kg/m2 Alisa Nobles [facility] 09-01-2020 18:08-0500 Body Temperature 98.49 [degF] Alisa Nobles [facility] 09-01-2020 18:08-0500 Body weight 77.11 kg Alisaelisa Nobles [facility] 09-01-2020 18:08-0500 BP Diastolic 87 mm[Hg] Alisaelisa Nobles [facility] 09-01-2020 18:08-0500 BP Systolic 138 mm[Hg] [facility] 18:08-0500 Pulse (Heart Rate) 70 /min [facility] 09-01-2020 18:08-0500 Pulse Oximetry 97 % [facility] 09-01-2020 18:08-0500 Respiratory Rate 18 /min [facility] 05-12-2020 12:03-0400 BMI (Body Mass Index) 24.33 kg/m2 [facility]12-2020 12:03-0400 Body Temperature 98.29 [degF] [facility]-12-2020 12:03-0400 Body weight 72.[address] [facility] 05-12-2020 12:03-0400 Pulse (Heart Rate) 84 /min [facility] 05-12-2020 12:03-0400 Pulse Oximetry 98 % [facility] 05-12-2020 12:03-0400 Respiratory Rate 16 /min [facility] 01-29-2020 16:00-0400 BMI (Body Mass Index) 25.85 kg/m2 Sherrie Solorio [facility] 01-29-2020 16:00-0400 Body Temperature 97.9 [degF] Sherrie Solorio [facility] 01-29-2020 16:00-0400 Body weight 77.11 kg Sherrie Solorio [facility] 01-29-2020 16:00-0400 BP Diastolic 91 mm[Hg] Sherrie Solorio [facility] 01-29-2020 16:00-0400 BP Systolic 142 mm[Hg] Sherrie Solorio [facility] 01-29-2020 16:00-0400 Height 172.7 cm Sherrie Solorio [facility] 01-29-2020 16:00-0400 Pulse (Heart Rate) 72 /min Sherrie Solorio [facility] 01-29-2020 16:00-0400 Pulse Oximetry 100 % Sherrie Solorio [facility] 01-29-2020 16:00-0400 Respiratory Rate 17 /min Sherrie Solorio [facility] 03-03-2019 17:40-0400 BMI (Body Mass Index) 26.61 kg/m2 Guillaume Loyd [facility] 03-03-2019 17:40-0400 Body Temperature 97.9 [degF] Guillaume Loyd [facility] 03-03-2019 17:40-0400 BP Diastolic 98 mm[Hg] Guillaume Loyd [facility] 03-03-2019 17:40-0400 BP Systolic 148 mm[Hg] Guillaume Loyd [facility] 03-03-2019 17:40-0400 Height 172.7 cm Guillaume Loyd [facility] 03-03-2019 17:40-0400 Pulse (Heart Rate) 73 /min Guillaumecade Loyd [facility] 03-03-2019 17:40-0400 Pulse Oximetry 99 % Guillaumecade Loyd [facility] 03-03-2019 17:40-0400 Respiratory Rate 18 /min Guillaumecade Loyd [facility] 03-03-2019 17:40-0400 Weight 79.38 kg Guillaume Loyd [facility] 04-30-2018 15:12-0400 BMI (Body Mass Index) 22.09 kg/m2 Alisa Camarillo [facility] 04-30-2018 15:12-0400 Body Temperature 98.2 [degF] Alisaelisa Camarillo [facility] 04-30-2018 15:12-0400 BP Diastolic 80 mm[Hg] [facility]-2018 15:12-0400 BP Systolic 125 mm[Hg] [facility] 04-30-2018 15:12-0400 Height 172.7 cm [facility] 04-30-2018 15:12-0400 Pulse (Heart Rate) 57 /min [facility] 04-30-2018 15:12-0400 Pulse Oximetry 98 % Alisaelisa Camarillo [facility] 04-30-2018 15:12-0400 Respiratory Rate 16 /min Alisaelisa Camarillo [facility] 04-30-2018 15:12-0400 Weight 65.9 kg [facility] En[facility]ters Encounter Date Encounter Type Care Provider Facility Start: 08-18-2022 End: 08-18-2022 ambulatory SATNAM ANDRADE [facility] Start: 08-10-2022 End: 08-10-2022 ambulatory DUNCAN CONNOLLY [facility] Start: 06-03-2022 End: 06-03-2022 ambulatory [facility] Start: 05-26-2022 End: 05-30-2022 ambulatory [facility]UNCAN [facility] Start: 02-25-2022 End: 02-25-2022 ambulatory [facility]UNCAN [facility] Start: 01-27-2022 End: 01-28-2022 ambulatory [facility] RESENDIZ [facility] Start: 01-23-2022 ambulatory KAY ANGULO Facilit y:[facility] Start: 12-13-2021 End: 12-13-2021 [facility] Start: 09-18-2021 ambulatory KAY ANGULO Facilit y:[facility] Start: 08-23-2021 ambulatory INGE JENKINS Facil ity:[facility] Start: 08-19-2021 ambulatory KAY ANGULO Facilit y:[facility] Start: 08-19-2021 ambulatory KAY ANGULO Facilit y:[facility] Start: 02-27-2021 End: 02-27-2021 Transcribe Orders Janneth Ma MA [facility] Procedures Date Procedure Procedure Detail Performing Clinician Start: 09-01-2020 Influenzavirus antib liudmila assay Alisa Nobles Work Phone: Start: 09-01-2020 COVID-19, MOLECULAR Chr fiordaliza Nobles Work Phone: Start: 01-29-2020 Streptococcus pyogen es Ag [Presence] in Throat Sherrie Qureshikristie Solorio Work Phone: Plan of Treatment Date Care Activity Detail Author Start: 06-26-2021 Influenza vaccination Sequential Influenza Vaccine (Season Ended) [facility] Start: 02-20-2021 End: 02-20-2021 Patient encounter procedure 02/20/2021 Office Visit Ophthalmology Otilio Mendoza DO [address] [place] [address] [phone] [facility] Start: 02-13-2021 End: 02-13-2021 Office Visit 02/13/2021 Office Visit Ophthalmology Otilio Mendoza, DO [address] [facility] [place] [address] [phone] [facility] Start: 06-26-2020 Influenza vaccination Sequential Influenza Vaccine (#1) [facility] Start: 06-26-2020 Influenza vaccination given Sequential Influenza Vaccine (#1) [facility] Start: 05-17-2017 Tetanus vaccination Tetanus: Every 10yrs [facility] Start: 2011 Hepatitis C antibody, confirmatory test Hepatitis C Screening [facility] Start: 2011 Hepatitis C screening Hepatitis C Screening [facility] Start: 2009 COVID-19 Vaccine (1) [facility]ine [facility] Start: 2008 HIV screening HIV Screening [facility] Start: 2005 Adolescent depression screening assessment Depression Screening (PHQ9) [facility] Start: 2005 Depression screening using PHQ-9 (Patient Health Questionnaire 9) score Depression Screening (PHQ9) [facility] Start: 1996 History and physical examination, annual for health maintenance Wellness Visit [facility] Start: 1993 Tetanus vaccination Tetanus: Every 10yrs [facility] Chlamydia trachomati s rRNA assay Chlamydia/GC/Trichomona s Amplified RNA Microbiology Routine Urethritis Ordered: 01/13/2021 [facility] Payers Date Payer Category Payer Medicaid [employer] MED[employer] [facility] MEDICAID [id number] 2021-Present [id number] 2020 Medicaid [employer] [facility] [facility] [id number] 2020-Present [id number] 2020 Medicaid [id number] 1995 Unknown [id number] 1993 Unknown [id number] 1993 Unknown [id number] 1993 Unknown [id number] 1993 Unknown [id number] 1993 Unknown [id number] [id number] 1993 Unknown [id number] [id number] 1993 Unknown [id number] 1993 Unknown [id number] [id number] 1993 Unknown [id number] [id number] 1993 Unknown [id number] [id number] 1993 Unknown [id number] [id number] 1993 Unknown [id number] [id number] Social History Date Type Detail Facility Start: 04-30-2018 Tobacco smoking status [facility] Unknown if ever smoked [facility] Sex Assigned At Not on file [facility] Start: 03-03-2019 End: 02-06-2021 Tobacco smoking status SCIS Former smoker [facility] End: 03-03-2018 History of tobacco use Current smoker [facility] Start: 01-29-2020 End: 02-06-2021 Alcohol intake Current drinker of alcohol (finding) [facility] Exposure to SARS-CoV -2 (event) Unable to assess [facility] Exposure to SARS-CoV -2 (event) Not sure [facility] Start: 09-01-2020 End: 02-06-2021 Tobacco use and exposure Never used [facility] Start: 10-16-2020 Alcohol Comment daily [facility] Start: 10-16-2020 Alcohol Comment daily [facility] Note 02-14-2021 Addendum Note - Otilio Mendoza, - 02/14/2021 4:05 PM EDTAddendum Note - Otilio Mendoza DO - 02/07/2021 10:02 AM EDT Note Date & Type Note Facility 02-14-2021 Miscellaneous Notes Addended by: OTILIO MENDOZA on: 02/14/2021 04:05 PM Modules accepted: Level of Service Addended by: OTILIO MENDOZA on: 02/07/2021 10:02 AM Modules accepted: Orders documented in this encounter [facility] History of Present illness Narrative 02-06-2021 Otilio Mendoza DO - 02/06/2021 3:38 PM EDT Note Date & Type Note Facility 02-06-2021 History of Presen t illness Narrative Ophthalmology Clinic Note Patient Name: Henok Douglass MR #: [id number] : 1995 Physicians: Physician No (Family); No ref. provider found (Referring) Ocular Medications: Outpatient Medications Marked as Taking for the 02/06/21 encounter (Evaluation) with Otilio Mendoza DO Medication Sig Dispense Refill olopatadine (PATANOL) 0.1 % ophthalmic solution tobramycin-dexamethasone (TOBRADEX) 0.3-0.1 % ophthalmic suspension INSTILL 1 DROP INTO AFFECTED EYE 3 TIMES A DAY Assessment/Plan 1. Allergic conjunctivitis of right eye - Very Mild irritation of palpebral conjunctiva. Pt complains of itching and mild pressure sensation that is irritating and causes him to rub his eye. Has tried olopatadine and tobradex with mild relief prescribed by Dr. Lewis. He hasn't used these drops lately. - Recommend trying FML drop TID to right eye - Deferred dilated exam today because he has to work. Recheck 1 week with dilated exam. Orders for next visit: None Additional MDM: Communication regarding today's evaluation/management sent to external provider(s) Ophthalmic Testing/Examination: Base Eye Exam Visual Acuity (Snellen - Linear) Right Left Dist sc 20/20 20/20 Near sc J1+ J1+ Tonometry (Applanation, 3:08 PM) Right Left Pressure 19 19 Pupils Pupils Shape Right PERRL Round Left PERRL Round Visual Orozco Right Left Full Full Extraocular Movement Right Left Full Full Neuro/Psych Oriented x3: Yes Mood/Affect: Normal Slit Lamp and Fundus Exam External Exam Right Left External Normal Normal Slit Lamp Exam Right Left Lids/Lashes Normal Normal Conjunctiva/Sclera mild papillary reaction in conj mild papillary reaction in conj Cornea Clear Clear Anterior Chamber Deep and quiet Deep and quiet Iris Round and reactive Round and reactive Lens Clear Clear XR Chest AP/LAT Narrative: IMAGING PT NAME: HENOK DOUGLASS MR #: [id number] : 1995 SEX: M ROOM #: ORDERING PHYS:Trinidad Alonso MD ORD START 01/03/2015 13:46 DATE/TIME: [facility] CODE: EDM EXAM: CHEST 2 VIEWS PACS #: [id number] SYMPTOMS/INDICATIONS: :COUGH Final Report CHEST 2 VIEWS: CLINICAL HISTORY: Cough for 3 days. TECHNIQUE: PA and lateral views of chest. COMPARISON: The prior study of 05/17/2014 is compared. FINDINGS: The lung orozco do not show an acute infiltrate. The heart size is normal. No mediastinal mass is seen or pleural effusion noted. The bony structures are intact. Lung volumes show a slight increase with some flattening of the diaphragmatic margins posteriorly on the lateral view. Impression: No acute infiltrates are noted. Minimal hyperinflation is seen which may suggest some degree of underlying asthma. Jose De Jesus Tristan MD This document has been electronically verified and Signed by the above signed dictating physician. DM/pws S: 01/03/2015 U: 01/03/2015 Job #: [id number] IMAGING Page 1 of 1 COPY Subjective Chief Complaint/Reason for Visit: HPI Chief complaint: Irritation of the right eye Location: Right eye Timing: All the time Severity: Moderate Duration: years Associated problems: blurred vision at time, eye makes squeak noise . Hasn't been using Rx drops from Dr. Lewis. Used the olopatadine and tobradex BID for awhile and that mildly improved symptoms. Ocular Surgical Hx: - No Known ocular surgical history No results found for: HGBA1C Last edited by Otilio Mendoza DO on 02/06/2021 3:36 PM. (History) History reviewed. No pertinent past medical history. Family History Problem Relation Age of Onset Cataracts Maternal Grandmother Glaucoma Neg Hx Macular degeneration Neg Hx Retinal detachment Neg Hx documented in this encounter [facility] Evaluation note Note Date & Type Note Facility documented in this encounter [facility] Evaluation note Note Date & Type Note Facility documented in this encounter [facility] Discharge Instructions * Inocencio Watson PA-C - 04/30/2018 Formatting of this note may be different from the original. Sore Throat: Care Instructions Your Care Instructions Infection by bacteria or a virus causes most sore throats. Cigarette smoke, dry air, air pollution,allergies, and yelling can also cause a sore throat. Sore throats can be painful and annoying. Fortunately, most sore throats go away on their own. If you have a bacterial infection, your doctor may prescribe antibiotics. Follow-up care is a lennon part of your treatment and safety. Be sure to make and go to all appointments, and call your doctor if you are having problems. It's also a good idea to know your test resultsand keep a list of the medicines you take. How can you care for yourself at home? If your doctor prescribed antibiotics, take them as directed. Do not stop taking them just because you feel better. You need to take the full course of antibiotics. Gargle with warm salt water once an hour to help reduce swelling and relieve discomfort. Use 1 teaspoon of salt mixed in 1 cup of warm water. Take an [id number]-auu-[id number] pain medicine, such as acetaminophen (Tylenol), ibuprofen (Advil, Motrin),or naproxen (Aleve). Read and follow all instructions on the label. Be careful when taking pqne-cre-tdgowxp cold or flu medicines and Tylenol at the same time. Many ofthese medicines have acetaminophen, which is Tylenol. Read the labels to make sure that you are nottaking more than the recommended dose. Too much acetaminophen (Tylenol) can be harmful. Drink plenty of fluids. Fluids may help soothe an irritated throat. Hot fluids, such as tea or soup, may help decrease throat pain. Use qcqo-woz-wvxzxji throat lozenges to soothe pain. Regular cough drops or hard candy may also help. These should not be given to young children because of the risk of choking. Do not smoke or allow others to smoke around you. If you need help quitting, talk to your doctor about stop-smoking programs and medicines. These can increase your chances of quitting for good. Use a vaporizer or humidifier to add moisture to your bedroom. Follow the directions for cleaning the machine. When should you call for help? Call your doctor now or seek immediate medical care if: ? You have new or worse trouble swallowing. ? Your sore throat gets much worse on one side. ?Watch closely for changes in your health, and be sure to contact your doctor if you do not get better as expected. Where can you learn more? Log into your personal health record on [email or web address] and enter U420 in the Education box to learn more about Sore Throat: Care Instructions. Current as of: March 06, 2017 Content Version: 11.6 9656-0748 [email or web address]. Care instructions adapted under license by your healthcare professional. If you have questions about a medical condition or this instruction, always ask your healthcare professional. [email or web address] disclaims any warranty or liability for your use of this information. Rapid Strep Test: About This Test What is it? A rapid strep test checks the bacteria in your throat to see if strep is the cause of your sore throat. Why is this test done? It may be done so your doctor can find out right away whether you have strep throat. There is another test for strep, called a throat culture, but that test takes a few days to get the results. How can you prepare for the test? You don't need to do anything before you have this test. What happens during the test? You will be asked to tilt your head back and open your mouth as wide as possible. Your doctor will press your tongue down with a flat stick (tongue depressor) and then examine your mouth and throat. A clean cotton swab will be rubbed over the back of your throat, around your tonsils, and over any red areas or sores to collect a sample. How long does the test take? The test takes less than a minute. Results are available in 10 to 15 minutes. Follow-up care is a lennon part of your treatment and safety. Be sure to make and go to all appointments, and call your doctor if you are having problems. It's also a good idea to keep a list of the medicines you take. Ask your doctor when you can expect to have your test results. Where can you learn more? Log into your personal health record on [email or web address].[email or web address] and enter B356 in the Education box to learn more about Rapid Strep Test: About This Test. Current as of: March 06, 2017 Content Version: 11.6 7365-0917 [email or web address]. Care instructions adapted under license by your healthcare professional. If you have questions about a medical condition or this instruction, always ask your healthcare professional. [email or web address] disclaims any warranty or liability for your use of this information. in this encounter* Instructions* Charly Johnston PA-C - 03/03/2019 Recommend warm compresses and keeping a close eye on the area. Return to ED for increased swelling,worsening pain, change in coloration of discharge. Strongly urged close follow-up with PCP for further assessment and management, do not believe imaging or further work-up warranted at this time in emergency room. * Attachments The following attachments cannot be sent through Care Everywhere. * Nipple Discharge: Male (Citizen Of [place]) documented in this encounter* Attachments The following attachments cannot be sent through Care Everywhere. * Viral Infections (Citizen Of [place]) * CT ED COVID-19 DISCHARGE INSTRUCTIONS * Coronavirus Disease (COVID-19): General Info (Citizen [place]) documented in this encounter* Attachments The following attachments cannot be sent through Care Everywhere. * Cervical Radiculopathy (Citizen Of [place]) documented in this encounter Assessments Diagnosis Pharyngitis, unspecified allyn ology - Primary Diagnosis Breast pain in male- Primary Nipple discharge Other sign and symptom in breast Diagnosis Viral illness Unspecified viral infection, in conditions classified elsewhere and of unspecified site Diagnosis Strep pharyngitis Diagnosis Close Exposure to Covid-19 Virus- Primary COVID-19 Diagnosis Numbness and tingling in left arm- Primary Diagnosis Cervical radiculopathy- Primary Brachial neuritis or radiculitis nos Diagnosis Urethritis- Primary Unspecified urethritis Elevated blood pressure reading Elevated blood pressure reading without diagnosis of hypertension Diagnosis Allergic conjunctivitis of right eye- Primary Other chronic allergic conjunctivitis Advance Directives No Advanced Directives Records FoundDocuments on File Type Date Recorded Patient Medical Interpreter Expl anation Advance Directives and Livin g Will 01/29/2020 6:38 PM declined Documents on File Type Date Recorded Patient Medical Interpreter Expl anation Advance Directives and Livin g Will 10/16/2020 6:38 PM declined Documents on File Type Date Recorded Patient Medical Interpreter Expl anation Advance Directives and Livin g Will 10/16/2020 6:38 PM declined Instructions * Patient Instructions* Inge Bustillo, DO - 05/12/2020 12:33 PM EDT Strep Throat: Care Instructions Your Care Instructions Strep throat is a bacterial infection that causes sudden, severe sore throat and fever. Strep throat, which is caused by bacteria called streptococcus, is treated with antibiotics. Sometimes a strep test is necessary to tell if the sore throat is caused by strep bacteria. Treatment can help ease symptoms and may prevent future problems. Follow-up care is a lennon part of your treatment and safety. Be sure to make and go to all appointments, and call your doctor if you are having problems. It's also a good idea to know your test resultsand keep a list of the medicines you take. How can you care for yourself at home? Take your antibiotics as directed. Do not stop taking them just because you feel better. You need to take the full course of antibiotics. Strep throat can spread to others until 24 hours after you begin taking antibiotics. During this time, you should avoid contact with other people at work or home, especially infants and children. Do not sneeze or cough on others, and wash your hands often. Keep your drinking glass and eating utensils separate from those of others, and wash these items well in hot, soapy water. Gargle with warm salt water at least once each hour to help reduce swelling and make your throat feel better. Use 1 teaspoon of salt mixed in 8 fluid ounces of warm water. Take an cxab-zys-nggikhe pain medication, such as acetaminophen (Tylenol), ibuprofen (Advil, Motrin), or naproxen (Aleve). Read and follow all instructions on the label. Try an eaia-vre-ctxogdp anesthetic throat spray or throat lozenges, which may help relieve throat pain. Drink plenty of fluids. Fluids may help soothe an irritated throat. Hot fluids, such as tea or soup, may help your throat feel better. Eat soft solids and drink plenty of clear liquids. Flavored ice pops, ice cream, scrambled eggs, sherbet, and gelatin dessert (such as Jell-O) may also soothe the throat. Get lots of rest. Do not smoke, and avoid secondhand smoke. If you need help quitting, talk to your doctor about stop-smoking programs and medicines. These can increase your chances of quitting for good. Use a vaporizer or humidifier to add moisture to the air in your bedroom. Follow the directions forcleaning the machine. When should you call for help? Call your doctor now or seek immediate medical care if: You have a new or higher fever. You have a fever with a stiff neck or severe headache. You have new or worse trouble swallowing. Your sore throat gets much worse on one side. Your pain becomes much worse on one side of your throat. Watch closely for changes in your health, and be sure to contact your doctor if: You are not getting better after 2 days (48 hours). You do not get better as expected. Where can you learn more? Log into your personal health record on [email or web address] and enter K625 in the Education box to learn more about Strep Throat: Care Instructions. Current as of: May 23, 2019 Content Version: 12.5 [id number] [email or web address]. Care instructions adapted under license by your healthcare professional. If you have questions about a medical condition or this instruction, always ask your healthcare professional. [email or web address] disclaims any warranty or liability for your use of this information. documented in this encounter* Patient Instructions* Lucas, Alisa Gely, WILDLIFE CONSERVATIONIST - 09/01/2020 6:59 PM [facility] COVID-19 Post-swabbing Instructions We will do our best to update you as soon as we receive your test results, but if we had to send your test to be run at the lab, you may see the results on MyChart or receive a call from [facility] before we are able to contact you. You should receive a call from our COVID-19 results provider as soon as possible. You did test positive for COVID19. Please follow the directions below: Isolate until: - it has been 10 days since you developed symptoms AND - you have been without a fever (100.4 F) for at least 24 hours without the use of fever reducing medication AND - your symptoms are improving Isolation is when you test positive for COVID-19 and is meant to keep the infected person away fromall others, even in their own home. If you live with others, stay in a specific sick room or area and away from other people or animals, including pets. Use a separate bathroom, if available. Seek emergency medical care immediately if you develop worsening warning signs including: - trouble breathing - persistent pain or pressure in the chest - new confusion - inability to wake or stay awake - bluish lips or face It is not recommended by the CDC to have another COVID-19 test done in order to discontinue isolation or return to work/school. We can provide return to work and school documentation as needed. If you test NEGATIVE for COVID-19: If you are under a 14 day quarantine because of significant exposure defined as close contact with someone that has a laboratory confirmed infection from COVID- 19 or that person was diagnosed by a medical professional, then a negative COVID-19 test does not clear you from the 14 day quarantine. Youwere likely not clinically infectious at the time of the test. This does not mean that you will notget sick and develop symptoms. It is possible that you were in the early phase of the infection at the time of your test and you could be positive later. For these reasons: 1) If the test was due to having symptoms WITH significant exposure, you should remain in quarantine: - for the full 14 days AND - you have been without a fever (100.4 F) for at least 24 hours without the use of fever reducing medication AND - your symptoms are improving If you are unable to separate yourself completely from the COVID-19 positive person (i.e. parent caring for a child), CDC guidelines recommend you quarantine for 24 days (10 days from symptom onset of the COVID positive person PLUS 14 additional days). 2) If the test was due to symptoms WITHOUT significant exposure, you may return to work/school if: - you have been without a fever (100.4 F) for at least 24 hours without the use of fever reducing medication AND - your symptoms are improving When Do I Self-Quarantine? You should quarantine if you have had a significant exposure which is defined as having been in close contact (as defined below) with someone that has a laboratory confirmed infection from COVID-19 or that person was diagnosed by a medical professional. This includes contact within 48 hours prior to when the COVID-19 positive person developed symptoms. - Quarantine is used to keep someone who might have been exposed to COVID-19 away from others. - Quarantine helps prevent spread of disease that can occur before a person knows they are sick or if they are infected with the virus without feeling symptoms. - People in quarantine should stay home, separate themselves from others, monitor their health, andfollow directions from their state or local health department. What counts as close contact? - You were within 6 feet of someone who has COVID-19 for at least 15 minutes - You provided care at home to someone who is sick with COVID-19 - You had direct physical contact with the person (touched, hugged, or kissed them) - You shared eating or drinking utensils - They sneezed, coughed, or somehow got respiratory droplets on you When and How Will I Get Results? Tests performed in the clinic will be available within 15-20 minutes from initiation of test. If your test was sent out to the lab for testing, it could take anywhere from 1-5 days after your specimen is collected. The provider/practice who placed the order for your test will notify you of your results. - If you have an active [employer] account, and your COVID-19 test is negative (not detected), then you will be notified through your [employer] account. You should call the urgent care if you have any further questions. - If your COVID-19 test is positive (detected), you will receive a phone call to discuss your results and answer any questions you might have at that time. Please make sure [facility] has your updated phone number so we can contact you. [facility] will notify the [facility] of any positive results to comply with state regulations. What Happens After I Get Tested if I Develop Worsening COVID-19 Symptoms? All patients should self-quarantine at home until they receive their test results. While self-quarantining, contact your PCP or return to the urgent care if you develop any of the following: - A fever of 103 degrees F (39.4 C) or higher - A fever that lasts more than 3 days without medication - A fever that returns after being gone for more than 24 hours - Chest pain or difficulty breathing - A worsening of current symptoms For work concerns, please contact your employer's HR department. How Do I Self-Quarantine? - Stay home until 14 days after last exposure and maintain social distance (at least 6 feet) from others at all times - Avoid contact with people at higher risk for severe illness from COVID-19 - Self-monitor for symptoms: - Check temperature twice a day - Watch for fever (100.4F or higher), cough, shortness of breath, or other CDC recognized symptoms of COVID-19 If I test positive, what about those with which I have had close contact (household members, partners, close friends, etc)? Anyone with close contact (as defined above) within 48 hours prior to when the COVID-19 positive person developed symptoms should self-quarantine for 14 days as above. What Do I Do If I am Sick? Stay Home: If you are sick, stay home from work, school, public places, and social gatherings Social Distance: maintain 6 feet of distance from other people. Monitor Your Symptoms: If you develop fever, shortness of breath, confusion, or any respiratory symptoms, please notify your doctor immediately Cover Your Cough: Cough and sneeze into your shirt sleeve or inner elbow. Do not cough into your hands or into the air. If available, cough into a tissue and throw it into a trash can. Wash Your Hands: Wash hands often with soap and warm water and/or alcohol based hand cotton tier, scrubbing your hands for at least 20 seconds. Wash your hands after sneezing or coughing, after going to the bathroom, and before eating or drinking. Wear a Mask: Wear a face mask when around others. Always wear a face mask (if able) if you have to leave your home Don't Touch: avoid touching your eyes, nose, and mouth Don't Share: avoid sharing items with others as they can spread infection Call First: If you do need to seek urgent medical care, call the facility first to let them know you are on your way Other COVID Questions? CDC - https://www.cdc.gov/coronavirus/2019-ncov/index.html - https://www.cdc.gov/coronavirus/2019-ncov/gs-exe-vxb-sick/quarantine.html [facility] - Website: https://coronavirus.[place].gov/wps/portal/gov/covid-19/home - Hotline: 902-8-EST-ODH (845-132-4290) [employer]: https://blog.Xiimo/series/hfplq-82-ybyruxgxvbo-toolkit/ documented in this encounter* Patient Instructions* Satnam Andrade CNP - 01/13/2021 2:47 PM EDT Plan: Take treatment today Fluconazole for possible balanitis fungal infection. Urine testing for gonorrhea, chlamydia, and trichomonas will take 1-3 days to complete. Expect phone call from urgent care regarding test results and any recommended treatment. Referral for a primary care provider. Makea follow up appointment with your primary care provider as soon as possible within the next week for further evaluation and treatment. Discuss STD testing with primary care provider including viral hepatitis, syphilis, HIV. If symptoms worsen, change, or new symptoms develop go instead immediately to the nearest emergency room for further evaluation and treatment. Warning of hypertension or pre-hypertension: The patient has been informed that they may have pre-hypertension or hypertension based on the blood pressure reading in the Urgent Care today. I recommend that the patient call the primary care provider promptly to arrange follow-up for further evaluation as soon as possible of possible hypertension or pre-hypertension. Urethritis: Care Instructions Your Care Instructions Urethritis is an infection of the tube that takes urine from the bladder to the outside of the body. This tube is called the urethra. The infection is often caused by bacteria. This can happen if you have a sexually transmitted infection (STI). But a virus may also be a cause. Urethritis is usually treated with antibiotics. Most cases clear up with treatment. Proper treatment is very important. If you don't treat it, the infection can lead to lasting damage of the urethra.Other parts of the urinary system can also be damaged. Follow-up care is a lennon part of your treatment and safety. Be sure to make and go to all appointments, and call your doctor if you are having problems. It's also a good idea to know your test resultsand keep a list of the medicines you take. How can you care for yourself at home? If your doctor prescribed antibiotics, take them as directed. Do not stop taking them just because you feel better. You need to take the full course of antibiotics. Take an pfqb-jdh-ofhybgc pain medicine, such as acetaminophen (Tylenol), ibuprofen (Advil, Motrin),or naproxen (Aleve), if needed. Be safe with medicines. Read and follow all instructions on the label. Do not take two or more pain medicines at the same time unless the doctor told you to. Many pain medicines have acetaminophen, which is Tylenol. Too much acetaminophen (Tylenol) can be harmful. Your doctor may have you take phenazopyridine (Pyridium). This is a pain medicine for the urinary tract. It can turn your urine a deep red-orange. This is normal. Call your doctor if you think you are having a problem with your medicine. Do not have sex until you are done with treatment. If you do have sex, be sure to use a condom. Your sex partner or partners should be tested too if your urethritis was caused by an STI. If your infection was caused by an injury or chemicals, avoid those things if you can. When should you call for help? Call your doctor now or seek immediate medical care if: You can't urinate. You have symptoms of a urinary infection. For example: ? You have blood or pus in your urine. ? You have pain in your back just below your rib cage. This is called flank pain. ? You have a fever, chills, or body aches. ? It hurts to urinate. ? You have groin or belly pain. You have a hard time urinating when your bladder is full. You notice mental changes or feel confused. Watch closely for changes in your health, and be sure to contact your doctor if: You do not get better as expected. Where can you learn more? Log into your personal health record on https://zeeWAVEShart.Xiimo and enter G078 in the Education box to learn more about Urethritis: Care Instructions. Current as of: April 23, 2020 Content Version: 12.7 [email or web address]. Care instructions adapted under license by your healthcare professional. If you have questions about a medical condition or this instruction, always ask your healthcare professional. [email or web address] disclaims any warranty or liability for your use of this information. Balanitis: Care Instructions Your Care Instructions Balanitis is irritation of the head of the penis. It is more common in men who have not been circumcised. The area under the foreskin that covers the head of the penis is often warm and moist. This can cause the growth of bacteria or a fungus. This can make the penis sore, red, swollen, and itchy. You may also feel burning when you urinate, have pus come from your penis, or have chills and a fever. Balanitis can also be caused by the chemicals in soap, condoms, or lubricants. Men with diabetes are more likely to get balanitis. Your doctor may suggest a cream that usually clears up the problem within 2 weeks. You can prevent balanitis by keeping your penis clean. You also can help prevent it by not using products that causeirritation. Follow-up care is a lennon part of your treatment and safety. Be sure to make and go to all appointments, and call your doctor if you are having problems. It's also a good idea to know your test resultsand keep a list of the medicines you take. How can you care for yourself at home? Be safe with medicines. Take your medicine exactly as prescribed. If your doctor prescribed antibiotics, take them as directed. Do not stop taking them just because you feel better. You need to take the full course of antibiotics. Keep your penis clean. If you have not been circumcised, gently pull the foreskin back to wash yourpenis with warm water. Make sure your penis is dry before you get dressed. If latex condoms irritate your penis, try other condoms that are made for sensitive skin. Your doctor can help you make a good choice. Wash your underwear with mild soap. Rinse it well. If you work with harsh chemicals, wash your hands well before you go to the bathroom. When should you call for help? Call your doctor now or seek immediate medical care if: You have signs of infection, such as: ? Increased pain, swelling, warmth, or redness. ? Red streaks leading from the area. ? Pus draining from the area. ? A fever. Watch closely for changes in your health, and be sure to contact your doctor if: You do not get better as expected. Where can you learn more? Log into your personal health record on [email or web address]imo and enter S742 in the Education box to learn more about Balanitis: Care Instructions. Current as of: December 06, 2019 Content Version: 12.7 [email or web address]. Care instructions adapted under license by your healthcare professional. If you have questions about a medical condition or this instruction, always ask your healthcare professional. [email or web address] disclaims any warranty or liability for your use of this information. Learning How to Use a Male Condom What is a male condom? Condoms can be used to prevent . They can also help protect against sexually transmitted infections (STIs). You must use a new condom every time you have sex. Condoms prevent by keeping sperm and eggs apart. The condom holds the sperm so the sperm can't get into the vagina. A male condom is a tube of soft rubber or plastic with a closed end. It fits over the penis. There are many kinds of male condoms. Some condoms are lubricated. Some are ribbed. Most have a reservoir tip for holding the semen. You can also buy condoms of different sizes. How do you use a condom? Condoms work best if you follow these steps. Use a new condom each time you have sex. Check the condom's expiration date. Do not use it past that date. When opening the condom wrapper, be sure not to poke a hole in the condom with your fingernails, teeth, or other sharp objects. Put the condom on as soon as the penis is hard (erect) and before any sexual contact with your partner. ? First, hold the tip of the condom and squeeze out the air. This leaves room for the semen after you ejaculate. ? If you are not circumcised, pull down the loose skin from the head of the penis (foreskin) beforeyou put on the condom. ? Hold on to the tip of the condom as you unroll the condom. Unroll it all the way down to the baseof the penis. After you ejaculate, hold on to the condom at the base of the penis, and withdraw from your partnerwhile your penis is still erect. This will keep semen from spilling out of the condom. Wash your hands after you handle a used condom. How do you buy and store condoms? Male condoms may be available for free at family planning clinics. You can buy them without a prescription at drugstores, online, and in some grocery stores. Keep condoms wrapped in their original packages until you are ready to use them. Store them in a cool, dry place out of direct sunlight. Don't keep rubber (latex) condoms in a glove compartment or other hot places for a long time. Heat weakens latex and increases the chance that the condom will break. Don't use condoms in damaged packages. And don't use condoms that are brittle, sticky, or discolored, even if they are not past their expiration date. What else do you need to know? To protect yourself and your partner from STIs, use a condom during vaginal, oral, or anal sex. If the condom breaks or you think sperm may have leaked out into the vagina, the woman can use emergency contraception to help prevent . The most effective emergency contraception is prescribed by a doctor. This includes the copper IUD (inserted by a doctor) or a prescription pill. You canalso get emergency contraceptive pills without a prescription at most drugstores. Use a male condom with another form of control. It's the best way to prevent . ? You can use the condom with hormonal contraception, an intrauterine device (IUD), a diaphragm, a sponge, a shield, or a cervical cap. ? Don't use a male condom with a female condom. ? Use spermicide as its instructions say. Don't put spermicide inside a condom. If you or your partner gets a rash or feels itchy after using a latex condom, talk to your doctor. You may have a latex allergy. Where can you learn more? Log into your personal health record on https://[employer].Xiimo and enter R522 in the Education box to learn more about Learning How to Use a Male Condom. Current as of: December 06, 2019 Content Version: 12.7 [email or web address]. Care instructions adapted under license by your healthcare professional. If you have questions about a medical condition or this instruction, always ask your healthcare professional. [email or web address] disclaims any warranty or liability for your use of this information. Elevated Blood Pressure: Care Instructions Your Care Instructions Blood pressure is a measure of how hard the blood pushes against the unnes of your arteries. It's normal for blood pressure to go up and down throughout the day. But if it stays up over time, you have high blood pressure. Two numbers tell you your blood pressure. The first number is the systolic pressure. It shows how hard the blood pushes when your heart is pumping. The second number is the diastolic pressure. It shows how hard the blood pushes between heartbeats, when your heart is relaxed and filling with blood. An ideal blood pressure in adults is less than 120/80 (say 120 over 80 ). High blood pressure is 140/90 or higher. You have high blood pressure if your top number is 140 or higher or your bottom number is 90 or higher, or both. The main test for high blood pressure is simple, fast, and painless. To diagnose high blood pressure, your doctor will test your blood pressure at different times. After testing your blood pressure, your doctor may ask you to test it again when you are home. If you are diagnosed with high blood pressure, you can work with your doctor to make a long-term plan to manage it. Follow-up care is a lennon part of your treatment and safety. Be sure to make and go to all appointments, and call your doctor if you are having problems. It's also a good idea to know your test resultsand keep a list of the medicines you take. How can you care for yourself at home? Do not smoke. Smoking increases your risk for heart attack and stroke. If you need help quitting, talk to your doctor about stop-smoking programs and medicines. These can increase your chances of quitting for good. Stay at a healthy weight. Try to limit how much sodium you eat to less than 2,300 milligrams (mg) a day. Your doctor may ask you to try to eat less than 1,500 mg a day. Be physically active. Get at least 30 minutes of exercise on most days of the week. Walking is a good choice. You also may want to do other activities, such as running, swimming, cycling, or playing tennis or team sports. Avoid or limit alcohol. Talk to your doctor about whether you can drink any alcohol. Eat plenty of fruits, vegetables, and low-fat dairy products. Eat less saturated and total fats. Learn how to check your blood pressure at home. When should you call for help? Call your doctor now or seek immediate medical care if: ? Your blood pressure is much higher than normal (such as 180/110 or higher). ? You think high blood pressure is causing symptoms such as: Severe headache. Blurry vision. ?Watch closely for changes in your health, and be sure to contact your doctor if: ? You do not get better as expected. Where can you learn more? Log into your personal health record on https://[employer]imo and enter F644 in the Education box to learn more about Elevated Blood Pressure: Care Instructions. Current as of: March 04, 2017 Content Version: 11.6 1615-7467 [email or web address]. Care instructions adapted under license by your healthcare professional. If you have questions about a medical condition or this instruction, always ask your healthcare professional. [email or web address] disclaims any warranty or liability for your use of this information. documented in this encounter* Patient Instructions* Satnam Andrade CNP - 01/13/2021 2:47 PM EDT Plan: Take treatment today Fluconazole for possible balanitis fungal infection. Urine testing for gonorrhea, chlamydia, and trichomonas will take 1-3 days to complete. Expect phone call from urgent care regarding test results and any recommended treatment. Referral for a primary care provider. Makea follow up appointment with your primary care provider as soon as possible within the next week for further evaluation and treatment. Discuss STD testing with primary care provider including viral hepatitis, syphilis, HIV. If symptoms worsen, change, or new symptoms develop go instead immediately to the nearest emergency room for further evaluation and treatment. Warning of hypertension or pre-hypertension: The patient has been informed that they may have pre-hypertension or hypertension based on the blood pressure reading in the Urgent Care today. I recommend that the patient call the primary care provider promptly to arrange follow-up for further evaluation as soon as possible of possible hypertension or pre-hypertension. Urethritis: Care Instructions Your Care Instructions Urethritis is an infection of the tube that takes urine from the bladder to the outside of the body. This tube is called the urethra. The infection is often caused by bacteria. This can happen if you have a sexually transmitted infection (STI). But a virus may also be a cause. Urethritis is usually treated with antibiotics. Most cases clear up with treatment. Proper treatment is very important. If you don't treat it, the infection can lead to lasting damage of the urethra.Other parts of the urinary system can also be damaged. Follow-up care is a lennon part of your treatment and safety. Be sure to make and go to all appointments, and call your doctor if you are having problems. It's also a good idea to know your test resultsand keep a list of the medicines you take. How can you care for yourself at home? If your doctor prescribed antibiotics, take them as directed. Do not stop taking them just because you feel better. You need to take the full course of antibiotics. Take an bkkb-pzz-vdtyohf pain medicine, such as acetaminophen (Tylenol), ibuprofen (Advil, Motrin),or naproxen (Aleve), if needed. Be safe with medicines. Read and follow all instructions on the label. Do not take two or more pain medicines at the same time unless the doctor told you to. Many pain medicines have acetaminophen, which is Tylenol. Too much acetaminophen (Tylenol) can be harmful. Your doctor may have you take phenazopyridine (Pyridium). This is a pain medicine for the urinary tract. It can turn your urine a deep red-orange. This is normal. Call your doctor if you think you are having a problem with your medicine. Do not have sex until you are done with treatment. If you do have sex, be sure to use a condom. Your sex partner or partners should be tested too if your urethritis was caused by an STI. If your infection was caused by an injury or chemicals, avoid those things if you can. When should you call for help? Call your doctor now or seek immediate medical care if: You can't urinate. You have symptoms of a urinary infection. For example: ? You have blood or pus in your urine. ? You have pain in your back just below your rib cage. This is called flank pain. ? You have a fever, chills, or body aches. ? It hurts to urinate. ? You have groin or belly pain. You have a hard time urinating when your bladder is full. You notice mental changes or feel confused. Watch closely for changes in your health, and be sure to contact your doctor if: You do not get better as expected. Where can you learn more? Log into your personal health record on https://[employer]imo and enter G078 in the Education box to learn more about Urethritis: Care Instructions. Current as of: April 23, 2020 Content Version: 12.7 [email or web address]. Care instructions adapted under license by your healthcare professional. If you have questions about a medical condition or this instruction, always ask your healthcare professional. [email or web address] disclaims any warranty or liability for your use of this information. Balanitis: Care Instructions Your Care Instructions Balanitis is irritation of the head of the penis. It is more common in men who have not been circumcised. The area under the foreskin that covers the head of the penis is often warm and moist. This can cause the growth of bacteria or a fungus. This can make the penis sore, red, swollen, and itchy. You may also feel burning when you urinate, have pus come from your penis, or have chills and a fever. Balanitis can also be caused by the chemicals in soap, condoms, or lubricants. Men with diabetes are more likely to get balanitis. Your doctor may suggest a cream that usually clears up the problem within 2 weeks. You can prevent balanitis by keeping your penis clean. You also can help prevent it by not using products that causeirritation. Follow-up care is a lennon part of your treatment and safety. Be sure to make and go to all appointments, and call your doctor if you are having problems. It's also a good idea to know your test resultsand keep a list of the medicines you take. How can you care for yourself at home? Be safe with medicines. Take your medicine exactly as prescribed. If your doctor prescribed antibiotics, take them as directed. Do not stop taking them just because you feel better. You need to take the full course of antibiotics. Keep your penis clean. If you have not been circumcised, gently pull the foreskin back to wash yourpenis with warm water. Make sure your penis is dry before you get dressed. If latex condoms irritate your penis, try other condoms that are made for sensitive skin. Your doctor can help you make a good choice. Wash your underwear with mild soap. Rinse it well. If you work with harsh chemicals, wash your hands well before you go to the bathroom. When should you call for help? Call your doctor now or seek immediate medical care if: You have signs of infection, such as: ? Increased pain, swelling, warmth, or redness. ? Red streaks leading from the area. ? Pus draining from the area. ? A fever. Watch closely for changes in your health, and be sure to contact your doctor if: You do not get better as expected. Where can you learn more? Log into your personal health record on [email or web address]Xiimo and enter S742 in the Education box to learn more about Balanitis: Care Instructions. Current as of: December 06, 2019 Content Version: 12.7 [email or web address]. Care instructions adapted under license by your healthcare professional. If you have questions about a medical condition or this instruction, always ask your healthcare professional. [email or web address] disclaims any warranty or liability for your use of this information. Learning How to Use a Male Condom What is a male condom? Condoms can be used to prevent . They can also help protect against sexually transmitted infections (STIs). You must use a new condom every time you have sex. Condoms prevent by keeping sperm and eggs apart. The condom holds the sperm so the sperm can't get into the vagina. A male condom is a tube of soft rubber or plastic with a closed end. It fits over the penis. There are many kinds of male condoms. Some condoms are lubricated. Some are ribbed. Most have a reservoir tip for holding the semen. You can also buy condoms of different sizes. How do you use a condom? Condoms work best if you follow these steps. Use a new condom each time you have sex. Check the condom's expiration date. Do not use it past that date. When opening the condom wrapper, be sure not to poke a hole in the condom with your fingernails, teeth, or other sharp objects. Put the condom on as soon as the penis is hard (erect) and before any sexual contact with your partner. ? First, hold the tip of the condom and squeeze out the air. This leaves room for the semen after you ejaculate. ? If you are not circumcised, pull down the loose skin from the head of the penis (foreskin) beforeyou put on the condom. ? Hold on to the tip of the condom as you unroll the condom. Unroll it all the way down to the baseof the penis. After you ejaculate, hold on to the condom at the base of the penis, and withdraw from your partnerwhile your penis is still erect. This will keep semen from spilling out of the condom. Wash your hands after you handle a used condom. How do you buy and store condoms? Male condoms may be available for free at family planning clinics. You can buy them without a prescription at drugstores, online, and in some grocery stores. Keep condoms wrapped in their original packages until you are ready to use them. Store them in a cool, dry place out of direct sunlight. Don't keep rubber (latex) condoms in a glove compartment or other hot places for a long time. Heat weakens latex and increases the chance that the condom will break. Don't use condoms in damaged packages. And don't use condoms that are brittle, sticky, or discolored, even if they are not past their expiration date. What else do you need to know? To protect yourself and your partner from STIs, use a condom during vaginal, oral, or anal sex. If the condom breaks or you think sperm may have leaked out into the vagina, the woman can use emergency contraception to help prevent . The most effective emergency contraception is prescribed by a doctor. This includes the copper IUD (inserted by a doctor) or a prescription pill. You canalso get emergency contraceptive pills without a prescription at most drugstores. Use a male condom with another form of control. It's the best way to prevent . ? You can use the condom with hormonal contraception, an intrauterine device (IUD), a diaphragm, a sponge, a shield, or a cervical cap. ? Don't use a male condom with a female condom. ? Use spermicide as its instructions say. Don't put spermicide inside a condom. If you or your partner gets a rash or feels itchy after using a latex condom, talk to your doctor. You may have a latex allergy. Where can you learn more? Log into your personal health record on https://[employer]hart.Xiimo and enter R522 in the Education box to learn more about Learning How to Use a Male Condom. Current as of: December 06, 2019 Content Version: 12.7 [email or web address]. Care instructions adapted under license by your healthcare professional. If you have questions about a medical condition or this instruction, always ask your healthcare professional. [email or web address] disclaims any warranty or liability for your use of this information. Elevated Blood Pressure: Care Instructions Your Care Instructions Blood pressure is a measure of how hard the blood pushes against the nunes of your arteries. It's normal for blood pressure to go up and down throughout the day. But if it stays up over time, you have high blood pressure. Two numbers tell you your blood pressure. The first number is the systolic pressure. It shows how hard the blood pushes when your heart is pumping. The second number is the diastolic pressure. It shows how hard the blood pushes between heartbeats, when your heart is relaxed and filling with blood. An ideal blood pressure in adults is less than 120/80 (say 120 over 80 ). High blood pressure is 140/90 or higher. You have high blood pressure if your top number is 140 or higher or your bottom number is 90 or higher, or both. The main test for high blood pressure is simple, fast, and painless. To diagnose high blood pressure, your doctor will test your blood pressure at different times. After testing your blood pressure, your doctor may ask you to test it again when you are home. If you are diagnosed with high blood pressure, you can work with your doctor to make a long-term plan to manage it. Follow-up care is a lennon part of your treatment and safety. Be sure to make and go to all appointments, and call your doctor if you are having problems. It's also a good idea to know your test resultsand keep a list of the medicines you take. How can you care for yourself at home? Do not smoke. Smoking increases your risk for heart attack and stroke. If you need help quitting, talk to your doctor about stop-smoking programs and medicines. These can increase your chances of quitting for good. Stay at a healthy weight. Try to limit how much sodium you eat to less than 2,300 milligrams (mg) a day. Your doctor may ask you to try to eat less than 1,500 mg a day. Be physically active. Get at least 30 minutes of exercise on most days of the week. Walking is a good choice. You also may want to do other activities, such as running, swimming, cycling, or playing tennis or team sports. Avoid or limit alcohol. Talk to your doctor about whether you can drink any alcohol. Eat plenty of fruits, vegetables, and low-fat dairy products. Eat less saturated and total fats. Learn how to check your blood pressure at home. When should you call for help? Call your doctor now or seek immediate medical care if: ? Your blood pressure is much higher than normal (such as 180/110 or higher). ? You think high blood pressure is causing symptoms such as: Severe headache. Blurry vision. ?Watch closely for changes in your health, and be sure to contact your doctor if: ? You do not get better as expected. Where can you learn more? Log into your personal health record on [email or web address]Xiimo and enter F644 in the Education box to learn more about Elevated Blood Pressure: Care Instructions. Current as of: March 04, 2017 Content Version: 11.6 7350-7957 [email or web address]. Care instructions adapted under license by your healthcare professional. If you have questions about a medical condition or this instruction, always ask your healthcare professional. [email or web address] disclaims any warranty or liability for your use of this information. documented in this encounter History of Present Illness * Inge Bustillo, - 05/12/2020 12:19 PM EDT PATIENT NAME: Henok Douglass [facility]: [address] [facility] [place], [address] [facility] [id number] DATE OF VISIT: 05/12/2020 DATE OF : 1995 SS: [id number] PROVIDER: Inge Bustillo, SUBJECTIVE 24 y.o. male to the clinic for complaint of Chief Complaint Patient presents with Sore Throat pt thinks strep, hard to swalling, has white stuff on back of throat . started hurting 2 days ago,noticed the white yesterday. no cough, no fever HPI: Sore throat for 2 days. Pain is exacerbated by swallowing. Moderate intensity. No radiation. Yesterday, he noticed exudate. No cough. No perceived fever, measured fever or febrile symptoms. ROS: Constitutional: Denies fever, chills, rigors, inappropriate diaphoresis. Eyes: Denies visual change, eye discharge, photophobia, eye pain. Head/Ear/Nose/Throat: Denies ear pain. Respiratory: Denies shortness of breath, cough. Gastrointestinal: Denies nausea, vomiting. Musculoskeletal: Denies arthralgia, myalgia. Skin: Denies rash. Neurological: Denies headache, focal neuro symptoms, ataxia. Lymphatic: He has noticed 1 sore anterior lymph node on the right side. Social History Socioeconomic History Marital status: Single Spouse name: Not on file Number of children: Not on file Years of education: Not on file Highest education level: Not on file Occupational History Not on file Social Needs Financial resource strain: Not on file Food insecurity Worry: Not on file Inability: Not on file Transportation needs Medical: Not on file Non-medical: Not on file Tobacco Use Smoking status: Former Smoker Last attempt to quit: 03/03/2018 Years since quittin.1 Smokeless tobacco: Never Used Substance and Sexual Activity Alcohol use: Yes Drug use: Never Sexual activity: Not on file Lifestyle Physical activity Days per week: Not on file Minutes per session: Not on file Stress: Not on file Relationships Social connections Talks on phone: Not on file Gets together: Not on file Attends zoroastrian service: Not on file Active member of club or organization: Not on file Attends meetings of clubs or organizations: Not on file Relationship status: Not on file Other Topics Concern Not on file Social History Narrative Not on file History reviewed. No pertinent past medical history. History reviewed. No pertinent family history. No current outpatient medications on file prior to visit. No current facility-administered medications on file prior to visit. No Known Allergies EXAM: Pulse 84 Temp 98.3 F (36.8 C) (Tympanic) Resp 16 Wt 72.6 kg (160 lb) SpO2 98% BMI 24.33 kg/m Constitutional: Vital signs reviewed. Well-appearing. No distress. Psychiatric: Mental status appropriate. Normal affect. Normal thought content. Skin: Warm and dry. No purpura or petechiae. No rash noted. Eyes: Conjunctiva clear. No photophobia. No icterus. HENT: No hoarseness, drooling, trismus, or stridor. Oral membranes are moist. No cervical adenopathy. Tympanic membranes are normal. No sinus tenderness to percussion. Postnasal drainage is present. Pharyngeal exam is otherwise unremarkable. Thorax/ Respiratory: Respiratory effort non-labored. Speaks in full sentences without apparent dyspnea. No rales or rhonchi. No wheeze. Clear to auscultation. Cardiovascular: Adequate peripheral circulation. HRRR without murmurs or ectopy. Gastrointestinal: Abdomen is soft and non-tender. No rigidity or guarding. No mass. Genitourinary: Negative CVA tenderness to percussion. Musculoskeletal: Neck supple. Normal ROM without hesitation or pain response. Neurologic: Alert. Oriented. Appropriately interactive. No ataxia. No gross facial motor asymmetry.Eye movement is normal. Extremity motor function is grossly intact. PROCEDURE Procedures RESULTS No results found for this or any previous visit (from the past 168 hour(s)). Diagnosis: The encounter diagnosis was Strep pharyngitis. Plan: 1. Strep pharyngitis amoxicillin (AMOXIL) 875 MG tablet No follow-ups on file. ORDERS PLACED THIS VISIT No orders of the defined types were placed in this encounter. MEDICATION LIST AT END OF VISIT Current Outpatient Medications Medication Sig Dispense Refill amoxicillin (AMOXIL) 875 MG tablet Take 1 (one) tablet (875 mg total) by mouth 2 (two) times a day for 10 days . 20 tablet 0 No current facility-administered medications for this visit. CLINICAL DECISION MAKING / URGENT CARE COURSE / ADDITIONAL CLINICAL COMMENTS / TREATMENT PLAN / FOLLOW UP I discussed clinical diagnosis of streptococcal pharyngitis and prescribed amoxicillin. Patient expressed some concern about COVID-19. No known exposure. Minimal symptoms. I told him that I had low suspicion of that disease and individuals who have problems with that will generally have respiratory difficulty she, on average, starting days 7 through 9. He will need to seek medical attention if hedevelops respiratory difficulty. He is young and healthy and likely to withstand a COVID-19 infection better than average. Inge Bustillo 05/12/2020 documented in this encounter* Alisa Nobles CNP - 09/01/2020 6:16 PM EST Patient Name: [facility] Location: [place] Douglass [address] [place] [address], [address] [facility] [id number] Date Of : Date Of Visit: 1995 09/01/2020 MRN# Provider: [id number] Alisa Nobles CNP Chief Complaint Patient presents with Fever diarrhea, 6 days Assessment & Plan 1. Close Exposure to Covid-19 Virus Covid-19/Influenza Order Algorithm COVID-19, Molecular POC Influenza A/B, Molecular 2. COVID-19 albuterol 90 mcg/actuation inhaler fluticasone propionate (FLONASE) 50 mcg/actuation nasal spray Return if symptoms worsen or fail to improve. Medical Decision Making Patient was advised that her covid test was positive. They were placed in quarantine for at least 10 days. Then the patient was encouraged to use albuterol and flonase as needed to help with congestion. He was also instructed that anyone who lives with him needs to stay in quarantine as well for atleast 14 days. He was advised to continue to wear his mask and wash his hands frequently. Then he was instructed to stay away from immunocompromised, elderly, and people who have comorbidities. The patient was written a work note stating that they may not return for at least 10 days. Then they werealso instructed to go directly to the hospital if symptoms worsen such as: Developing shortness of breath, dizziness, chest pain, palpatations, or new confusion. The patient verbalized understanding and agreed with this plan of care. Additional Clinical Comments Discussed over the counter medications for symptomatic management and side effects of medications. Recommended taking all medications with food and to stop medications if they develop any signs of anallergic reaction. Educated patient and/or guardian about signs and symptoms that would warrant further immediate evaluation. Recommended that they should return to urgent care, make an appointment with their family physician, or go to the emergency room if symptoms persist or get acutely worse. Recommended follow upwithin the next week with their PCP or to get established with a PCP soon in order to follow up appropriately. Influenza Immunization Patient agreed to influenza immunization but wishes to postpone it at this time. Flu shot postponedin the chart under Health Maintenance. [facility] COVID-19 Mask Status: Does the patient have classic COVID-19 symptoms? Yes, the patient has COVID-19 symptoms, the patient WAS wearing a mask during the visit and I (the provider) WAS wearing full PPE (N95 mask, gown, gloves, and face shield) during the visit. Subjective 24 y.o. male presents with Fever (diarrhea, 6 days) HPI 24 year old male presents to the urgent care with complaints of a fever as high as 102 that lasted 2-3 days, slight cough, nasal congestion, headaches, diarrhea, vomiting one time, chest tightness. Denies loss of taste or smell. He has some friends that have had covid, and wants flu and covid tested. Did go to the [facility] house and afterwards found that he had a fever. Review Of Systems Review of Systems See HPI Medical History History reviewed. No pertinent past medical history. Past Surgical History: Procedure Laterality Date NECK SURGERY There is no problem list on file for this patient. Social History Social History Tobacco Use Smoking status: Former Smoker Quit date: 03/03/2018 Years since quittin.5 Smokeless tobacco: Never Used Substance Use Topics Alcohol use: Yes Drug use: Never Family History History reviewed. No pertinent family history. Objective Physical Exam BP 138/87 Pulse 70 Temp 98.5 F (36.9 C) (Temporal) Resp 18 Wt 77.1 kg (170 lb) SpO2 97% BMI 25.85 kg/m Vision/Hearing Exam:No exam data present Physical Exam Constitutional: General: He is not in acute distress. Appearance: He is well-developed and normal weight. He is not ill-appearing, toxic-appearing or diaphoretic. HENT: Head: Normocephalic and atraumatic. Right Ear: Hearing and external ear normal. Left Ear: Hearing and external ear normal. Nose: Nose normal. No mucosal edema or rhinorrhea. Eyes: General: Right eye: No discharge. Left eye: No discharge. Conjunctiva/sclera: Conjunctivae normal. Pupils: Pupils are equal, round, and reactive to light. Neck: Musculoskeletal: Normal range of motion and neck supple. Cardiovascular: Rate and Rhythm: Normal rate and regular rhythm. Heart sounds: Normal heart sounds. Pulmonary: Effort: Pulmonary effort is normal. No accessory muscle usage or respiratory distress. Breath sounds: Normal breath sounds. No decreased breath sounds, wheezing, rhonchi or rales. Abdominal: General: There is no distension. Palpations: Abdomen is soft. Tenderness: There is no abdominal tenderness. There is no guarding or rebound. Musculoskeletal: Normal range of motion. Skin: General: Skin is warm. Findings: No erythema or rash. Neurological: Mental Status: He is alert and oriented to person, place, and time. Psychiatric: Behavior: Behavior normal. Behavior is cooperative. Thought Content: Thought content normal. Judgment: Judgment normal. Procedure Notes Procedures Results Recent Results (from the past 168 hour(s)) COVID-19, Molecular Collection Time: 09/01/20 6:48 PM Specimen: Nasopharyngeal; Swab Result Value Ref Range SARS-CoV-2 Detected (A) Not Detected Internal Control Pass POC Influenza A/B, Molecular Collection Time: 09/01/20 7:01 PM Result Value Ref Range Rapid Influenza A Ag Negative Negative Rapid Influenza B Ag Negative Negative No orders to display Orders Placed This Visit Orders Placed This Encounter Procedures Covid-19/Influenza Order Algorithm COVID-19, Molecular POC Influenza A/B, Molecular Medication List At End Of Visit Current Outpatient Medications Medication Sig Dispense Refill albuterol 90 mcg/actuation inhaler Inhale 2 (two) puffs every 6 (six) hours as needed . 1 Inhaler 0 fluticasone propionate (FLONASE) 50 mcg/actuation nasal spray Instill 2 (two) sprays into each nostril daily . 16 g 0 No current facility-administered medications for this visit. Patient Instructions [facility] COVID-19 Post-swabbing Instructions We will do our best to update you as soon as we receive your test results, but if we had to send your test to be run at the lab, you may see the results on [email or web address] or receive a call from [facility] before we are able to contact you. You should receive a call from our COVID-19 results provider as soon as possible. You did test positive for COVID19. Please follow the directions below: Isolate until: - it has been 10 days since you developed symptoms AND - you have been without a fever (100.4 F) for at least 24 hours without the use of fever reducing medication AND - your symptoms are improving Isolation is when you test positive for COVID-19 and is meant to keep the infected person away fromall others, even in their own home. If you live with others, stay in a specific sick room or area and away from other people or animals, including pets. Use a separate bathroom, if available. Seek emergency medical care immediately if you develop worsening warning signs including: - trouble breathing - persistent pain or pressure in the chest - new confusion - inability to wake or stay awake - bluish lips or face It is not recommended by the CDC to have another COVID-19 test done in order to discontinue isolation or return to work/school. We can provide return to work and school documentation as needed. If you test NEGATIVE for COVID-19: If you are under a 14 day quarantine because of significant exposure defined as close contact with someone that has a laboratory confirmed infection from COVID- 19 or that person was diagnosed by a medical professional, then a negative COVID-19 test does not clear you from the 14 day quarantine. Youwere likely not clinically infectious at the time of the test. This does not mean that you will notget sick and develop symptoms. It is possible that you were in the early phase of the infection at the time of your test and you could be positive later. For these reasons: 1) If the test was due to having symptoms WITH significant exposure, you should remain in quarantine: - for the full 14 days AND - you have been without a fever (100.4 F) for at least 24 hours without the use of fever reducing medication AND - your symptoms are improving If you are unable to separate yourself completely from the COVID-19 positive person (i.e. parent caring for a child), CDC guidelines recommend you quarantine for 24 days (10 days from symptom onset of the COVID positive person PLUS 14 additional days). 2) If the test was due to symptoms WITHOUT significant exposure, you may return to work/school if: - you have been without a fever (100.4 F) for at least 24 hours without the use of fever reducing medication AND - your symptoms are improving When Do I Self-Quarantine? You should quarantine if you have had a significant exposure which is defined as having been in close contact (as defined below) with someone that has a laboratory confirmed infection from COVID-19 or that person was diagnosed by a medical professional. This includes contact within 48 hours prior to when the COVID-19 positive person developed symptoms. - Quarantine is used to keep someone who might have been exposed to COVID-19 away from others. - Quarantine helps prevent spread of disease that can occur before a person knows they are sick or if they are infected with the virus without feeling symptoms. - People in quarantine should stay home, separate themselves from others, monitor their health, andfollow directions from their state or local health department. What counts as close contact? - You were within 6 feet of someone who has COVID-19 for at least 15 minutes - You provided care at home to someone who is sick with COVID-19 - You had direct physical contact with the person (touched, hugged, or kissed them) - You shared eating or drinking utensils - They sneezed, coughed, or somehow got respiratory droplets on you When and How Will I Get Results? Tests performed in the clinic will be available within 15-20 minutes from initiation of test. If your test was sent out to the lab for testing, it could take anywhere from 1-5 days after your specimen is collected. The provider/practice who placed the order for your test will notify you of your results. - If you have an active [employer] account, and your COVID-19 test is negative (not detected), then you will be notified through your [employer] account. You should call the urgent care if you have any further questions. - If your COVID-19 test is positive (detected), you will receive a phone call to discuss your results and answer any questions you might have at that time. Please make sure [facility] has your updated phone number so we can contact you. [facility] will notify the [facility] of any positive results to comply with state regulations. What Happens After I Get Tested if I Develop Worsening COVID-19 Symptoms? All patients should self-quarantine at home until they receive their test results. While self-quarantining, contact your PCP or return to the urgent care if you develop any of the following: - A fever of 103 degrees F (39.4 C) or higher - A fever that lasts more than 3 days without medication - A fever that returns after being gone for more than 24 hours - Chest pain or difficulty breathing - A worsening of current symptoms For work concerns, please contact your employer's HR department. How Do I Self-Quarantine? - Stay home until 14 days after last exposure and maintain social distance (at least 6 feet) from others at all times - Avoid contact with people at higher risk for severe illness from COVID-19 - Self-monitor for symptoms: - Check temperature twice a day - Watch for fever (100.4F or higher), cough, shortness of breath, or other CDC recognized symptoms of COVID-19 If I test positive, what about those with which I have had close contact (household members, partners, close friends, etc)? Anyone with close contact (as defined above) within 48 hours prior to when the COVID-19 positive person developed symptoms should self-quarantine for 14 days as above. What Do I Do If I am Sick? Stay Home: If you are sick, stay home from work, school, public places, and social gatherings Social Distance: maintain 6 feet of distance from other people. Monitor Your Symptoms: If you develop fever, shortness of breath, confusion, or any respiratory symptoms, please notify your doctor immediately Cover Your Cough: Cough and sneeze into your shirt sleeve or inner elbow. Do not cough into your hands or into the air. If available, cough into a tissue and throw it into a trash can. Wash Your Hands: Wash hands often with soap and warm water and/or alcohol based hand cotton tier, scrubbing your hands for at least 20 seconds. Wash your hands after sneezing or coughing, after going to the bathroom, and before eating or drinking. Wear a Mask: Wear a face mask when around others. Always wear a face mask (if able) if you have to leave your home Don't Touch: avoid touching your eyes, nose, and mouth Don't Share: avoid sharing items with others as they can spread infection Call First: If you do need to seek urgent medical care, call the facility first to let them know you are on your way Other COVID Questions? CDC - https://www.cdc.gov/coronavirus/2019-ncov/index.html - https://www.cdc.gov/coronavirus/2019-ncov/ud-ngb-zue-sick/quarantine.html [facility] - Website: https://coronavirus.[place].gov/wps/portal/gov/covid-19/home - Hotline: 647-5-LVJ-ODH (311-288-2933) [facility]: https://blog.[employer]/series/waave-75-yidjwlnknnc-toolkit/ documented in this encounter* Alondra Santana CNP - 10/16/2020 3:31 PM EST [facility] Brief Evaluation Form Patient Name: [facility] Location: [place] Douglass [address] [place] [address], [address] [facility] [id number] Date Of : Date Of Visit: 1995 10/16/2020 MRN# Provider: [id number] Alondra Santana CNP SUBJECTIVE [facility] Douglass [facility] with Numbness (left arm) HPI: Left arm numbness and radiation up to his neck Allergies: Patient has no known allergies. OBJECTIVE BP (!) 153/95 (BP Location: Right arm, Patient Position: Sitting, BP Cuff Size: Adult) Pulse 69 Temp 98.1 F (36.7 C) (Oral) Resp 18 Ht 5' 5 Wt 77.1 kg (170 lb) SpO2 95% BMI 28.29 kg/m Pertinent PE Findings: Patient verbalizes his head feels numb at times on the left side ASSESSMENT No diagnosis found. Medical Decision Making: Rule out stroke [facility] COVID-19 suspected symptoms and mask status: Does the patient have suspected COVID-19 symptoms? No, the patient does not have COVID-19 symptoms,the patient WAS wearing a mask during the visit and I (the provider) WAS wearing a mask during the visit. PLAN Patient is being recommended to go to [facility] for further evaluation and treatment. Patient will transport via Private Auto (Self). Refused squad Transfer Center Contacted: yes Orders Placed This Visit No orders of the defined types were placed in this encounter. Medication List At End Of Visit Current Outpatient Medications Medication Sig Dispense Refill albuterol 90 mcg/actuation inhaler Inhale 2 (two) puffs every 6 (six) hours as needed . 1 Inhaler 0 fluticasone propionate (FLONASE) 50 mcg/actuation nasal spray Instill 2 (two) sprays into each nostril daily . 16 g 0 No current facility-administered medications for this visit. *Transfer location subject to change based on patient condition during transport at EMS discretion. documented in this encounter* Satnam Andarde CNP - 01/13/2021 2:21 PM EDT Patient Name: [facility] Location: [place] Douglass [address] [place] [address], [address] [facility] [id number] Date Of : Date Of Visit: 1995 01/13/2021 MRN# Provider: [id number] Satnam Andrade CNP Chief Complaint Patient presents with Exposure to STD itchy to top of private, and white discharge x this week. Pt wants to be tested. Pee is really yellow. Pt said they were exposed to hep C in the past. Has not had further treatment. Assessment & Plan 1. Urethritis Chlamydia/GC/Trichomonas Amplified RNA Ambulatory referral to Family Medicine fluconazole (DIFLUCAN) 150 MG tablet 2. Elevated blood pressure reading No follow-ups on file. Medical Decision Making See HPI. See Exam findings. Vital signs reviewed. Blood pressure elevated. Complains of itching penis onset recently the past week. There was a whitish type of discharge. Concerned about exposure to Hepatitis C. On exam there was no obvious discharge or lesion present. A possible cause of symptoms is mild balanitis. Discussed this with the patient and patient was agreeable to take treatment for possible balanitis. Discussed urine testing for gonorrhea chlamydia and trichomoniasis and patient was agreeable. We discussed the limits of urgent care evaluation and treatment. Diagnosis Urethritis .Differential considered included balanitis, dermatitis, gonorrhea, genital wart, chlamydia, trichomonas, herpes . Plan: Take treatment today Fluconazole for possible balanitis fungal infection. Urinetesting for gonorrhea, chlamydia, and trichomonas will take 1-3 days to complete. Expect phone callfrom urgent care regarding test results and any recommended treatment. Referral for a primary care provider. Make a follow up appointment with your primary care provider as soon as possible within the next week for further evaluation and treatment. Discuss STD testing with primary care provider including viral hepatitis, syphilis, HIV. If symptoms worsen, change, or new symptoms develop go instead immediately to the nearest emergency room for further evaluation and treatment. Warning of hypertension or pre-hypertension: The patient has been informed that they may have pre-hypertension or hypertension based on the blood pressure reading in the Urgent Care today. I recommend that the patient call the primary care provider promptly to arrange follow-up for further evaluation as soon as possible of possible hypertension or pre-hypertension. Prior to the conclusion of the encounter the nursepractitioner discussed with the patient the diagnosis, treatment plan, and follow up recommendation. Questions were answered until the patient expressed satisfaction that they had no further question, comment or concern. [facility] COVID-19 Mask Status: Does the patient have classic COVID-19 symptoms? No, the patient does not have COVID-19 symptoms Subjective 25 y.o. male presents with Exposure to STD (itchy to top of private, and white discharge x this week. Pt wants to be tested. Pee is really yellow. Pt said they were exposed to hep C in the past. Has not had further treatment. ) Complains of itching penis onset recently the past week. There was a whitish type of discharge. Concerned about exposure to Hepatitis C. Review Of Systems Review of Systems Constitutional: Negative for fever. Respiratory: Negative for cough. Cardiovascular: Negative for chest pain. Gastrointestinal: Negative for vomiting. Genitourinary: Positive for discharge. Negative for dysuria, genital sores, penile pain, penile swelling, scrotal swelling, testicular pain and urgency. Musculoskeletal: Negative for myalgias. Skin: Negative for rash and wound. Neurological: Negative for weakness. Hematological: Negative for adenopathy. Psychiatric/Behavioral: Negative for confusion and decreased concentration. Medical History History reviewed. No pertinent past medical history. Past Surgical History: Procedure Laterality Date NECK SURGERY There is no problem list on file for this patient. Social History Social History Tobacco Use Smoking status: Former Smoker Quit date: 03/03/2018 Years since quittin.8 Smokeless tobacco: Never Used Substance Use Topics Alcohol use: Yes Comment: daily Drug use: Never Family History History reviewed. No pertinent family history. Objective Physical Exam BP (!) 140/93 Pulse 77 Temp 98 F (36.7 C) (Oral) Resp 16 Wt 82.1 kg (181 lb) SpO2 97% BMI 27.52 kg/m Vision/Hearing Exam:No exam data present Physical Exam Constitutional: General: He is not in acute distress. Appearance: He is well-developed. He is not diaphoretic. HENT: Head: Normocephalic and atraumatic. Right Ear: External ear normal. Left Ear: External ear normal. Eyes: General: Right eye: No discharge. Left eye: No discharge. Conjunctiva/sclera: Conjunctivae normal. Neck: Musculoskeletal: Normal range of motion and neck supple. Pulmonary: Effort: Pulmonary effort is normal. No respiratory distress. Abdominal: General: There is no distension. Genitourinary: Penis: Circumcised. No erythema, discharge or swelling. Comments: Robin Neri manager pharmaceutical No obvious discharge or lesions of penis Musculoskeletal: Normal range of motion. Skin: General: Skin is warm and dry. Capillary Refill: Capillary refill takes less than 2 seconds. Findings: No rash. Neurological: General: No focal deficit present. Mental Status: He is alert and oriented to person, place, and time. Motor: No weakness. Coordination: Coordination normal. Psychiatric: Behavior: Behavior normal. Thought Content: Thought content normal. Judgment: Judgment normal. Procedure Notes Procedures Results No results found for this or any previous visit (from the past 168 hour(s)). No orders to display Orders Placed This Visit Orders Placed This Encounter Procedures Chlamydia/GC/Trichomonas Amplified RNA Ambulatory referral to Family Medicine Medication List At End Of Visit Current Outpatient Medications Medication Sig Dispense Refill olopatadine (PATANOL) 0.1 % ophthalmic solution albuterol 90 mcg/actuation inhaler Inhale 2 (two) puffs every 6 (six) hours as needed . (Patient not taking: Reported on 01/13/2021 .) 1 Inhaler 0 fluconazole (DIFLUCAN) 150 MG tablet Take 1 (one) tablet (150 mg total) by mouth once for 1 dose . 1 tablet 0 fluticasone propionate (FLONASE) 50 mcg/actuation nasal spray Instill 2 (two) sprays into each nostril daily . (Patient not taking: Reported on 01/13/2021 .) 16 g 0 No current facility-administered medications for this visit. Patient Instructions Plan: Take treatment today Fluconazole for possible balanitis fungal infection. Urine testing for gonorrhea, chlamydia, and trichomonas will take 1-3 days to complete. Expect phone call from urgent care regarding test results and any recommended treatment. Referral for a primary care provider. Makea follow up appointment with your primary care provider as soon as possible within the next week for further evaluation and treatment. Discuss STD testing with primary care provider including viral hepatitis, syphilis, HIV. If symptoms worsen, change, or new symptoms develop go instead immediately to the nearest emergency room for further evaluation and treatment. Warning of hypertension or pre-hypertension: The patient has been informed that they may have pre-hypertension or hypertension based on the blood pressure reading in the Urgent Care today. I recommend that the patient call the primary care provider promptly to arrange follow-up for further evaluation as soon as possible of possible hypertension or pre-hypertension. Urethritis: Care Instructions Your Care Instructions Urethritis is an infection of the tube that takes urine from the bladder to the outside of the body. This tube is called the urethra. The infection is often caused by bacteria. This can happen if you have a sexually transmitted infection (STI). But a virus may also be a cause. Urethritis is usually treated with antibiotics. Most cases clear up with treatment. Proper treatment is very important. If you don't treat it, the infection can lead to lasting damage of the urethra.Other parts of the urinary system can also be damaged. Follow-up care is a lennon part of your treatment and safety. Be sure to make and go to all appointments, and call your doctor if you are having problems. It's also a good idea to know your test resultsand keep a list of the medicines you take. How can you care for yourself at home? If your doctor prescribed antibiotics, take them as directed. Do not stop taking them just because you feel better. You need to take the full course of antibiotics. Take an mwnm-nzm-vowynpt pain medicine, such as acetaminophen (Tylenol), ibuprofen (Advil, Motrin),or naproxen (Aleve), if needed. Be safe with medicines. Read and follow all instructions on the label. Do not take two or more pain medicines at the same time unless the doctor told you to. Many pain medicines have acetaminophen, which is Tylenol. Too much acetaminophen (Tylenol) can be harmful. Your doctor may have you take phenazopyridine (Pyridium). This is a pain medicine for the urinary tract. It can turn your urine a deep red-orange. This is normal. Call your doctor if you think you are having a problem with your medicine. Do not have sex until you are done with treatment. If you do have sex, be sure to use a condom. Your sex partner or partners should be tested too if your urethritis was caused by an STI. If your infection was caused by an injury or chemicals, avoid those things if you can. When should you call for help? Call your doctor now or seek immediate medical care if: You can't urinate. You have symptoms of a urinary infection. For example: ? You have blood or pus in your urine. ? You have pain in your back just below your rib cage. This is called flank pain. ? You have a fever, chills, or body aches. ? It hurts to urinate. ? You have groin or belly pain. You have a hard time urinating when your bladder is full. You notice mental changes or feel confused. Watch closely for changes in your health, and be sure to contact your doctor if: You do not get better as expected. Where can you learn more? Log into your personal health record on https://zeeWAVEShart.Xiimo and enter G078 in the Education box to learn more about Urethritis: Care Instructions. Current as of: April 23, 2020 Content Version: 12.7 [email or web address]. Care instructions adapted under license by your healthcare professional. If you have questions about a medical condition or this instruction, always ask your healthcare professional. [email or web address] disclaims any warranty or liability for your use of this information. Balanitis: Care Instructions Your Care Instructions Balanitis is irritation of the head of the penis. It is more common in men who have not been circumcised. The area under the foreskin that covers the head of the penis is often warm and moist. This can cause the growth of bacteria or a fungus. This can make the penis sore, red, swollen, and itchy. You may also feel burning when you urinate, have pus come from your penis, or have chills and a fever. Balanitis can also be caused by the chemicals in soap, condoms, or lubricants. Men with diabetes are more likely to get balanitis. Your doctor may suggest a cream that usually clears up the problem within 2 weeks. You can prevent balanitis by keeping your penis clean. You also can help prevent it by not using products that causeirritation. Follow-up care is a lennon part of your treatment and safety. Be sure to make and go to all appointments, and call your doctor if you are having problems. It's also a good idea to know your test resultsand keep a list of the medicines you take. How can you care for yourself at home? Be safe with medicines. Take your medicine exactly as prescribed. If your doctor prescribed antibiotics, take them as directed. Do not stop taking them just because you feel better. You need to take the full course of antibiotics. Keep your penis clean. If you have not been circumcised, gently pull the foreskin back to wash yourpenis with warm water. Make sure your penis is dry before you get dressed. If latex condoms irritate your penis, try other condoms that are made for sensitive skin. Your doctor can help you make a good choice. Wash your underwear with mild soap. Rinse it well. If you work with harsh chemicals, wash your hands well before you go to the bathroom. When should you call for help? Call your doctor now or seek immediate medical care if: You have signs of infection, such as: ? Increased pain, swelling, warmth, or redness. ? Red streaks leading from the area. ? Pus draining from the area. ? A fever. Watch closely for changes in your health, and be sure to contact your doctor if: You do not get better as expected. Where can you learn more? Log into your personal health record on [email or web address].[email or web address] [address] and enter S742 in the Education box to learn more about Balanitis: Care Instructions. Current as of: December 06, 2019 Content Version: 12.7 [email or web address]. Care instructions adapted under license by your healthcare professional. If you have questions about a medical condition or this instruction, always ask your healthcare professional. [email or web address] disclaims any warranty or liability for your use of this information. Learning How to Use a Male Condom What is a male condom? Condoms can be used to prevent . They can also help protect against sexually transmitted infections (STIs). You must use a new condom every time you have sex. Condoms prevent by keeping sperm and eggs apart. The condom holds the sperm so the sperm can't get into the vagina. A male condom is a tube of soft rubber or plastic with a closed end. It fits over the penis. There are many kinds of male condoms. Some condoms are lubricated. Some are ribbed. Most have a reservoir tip for holding the semen. You can also buy condoms of different sizes. How do you use a condom? Condoms work best if you follow these steps. Use a new condom each time you have sex. Check the condom's expiration date. Do not use it past that date. When opening the condom wrapper, be sure not to poke a hole in the condom with your fingernails, teeth, or other sharp objects. Put the condom on as soon as the penis is hard (erect) and before any sexual contact with your partner. ? First, hold the tip of the condom and squeeze out the air. This leaves room for the semen after you ejaculate. ? If you are not circumcised, pull down the loose skin from the head of the penis (foreskin) beforeyou put on the condom. ? Hold on to the tip of the condom as you unroll the condom. Unroll it all the way down to the baseof the penis. After you ejaculate, hold on to the condom at the base of the penis, and withdraw from your partnerwhile your penis is still erect. This will keep semen from spilling out of the condom. Wash your hands after you handle a used condom. How do you buy and store condoms? Male condoms may be available for free at family planning clinics. You can buy them without a prescription at drugstores, online, and in some grocery stores. Keep condoms wrapped in their original packages until you are ready to use them. Store them in a cool, dry place out of direct sunlight. Don't keep rubber (latex) condoms in a glove compartment or other hot places for a long time. Heat weakens latex and increases the chance that the condom will break. Don't use condoms in damaged packages. And don't use condoms that are brittle, sticky, or discolored, even if they are not past their expiration date. What else do you need to know? To protect yourself and your partner from STIs, use a condom during vaginal, oral, or anal sex. If the condom breaks or you think sperm may have leaked out into the vagina, the woman can use emergency contraception to help prevent . The most effective emergency contraception is prescribed by a doctor. This includes the copper IUD (inserted by a doctor) or a prescription pill. You canalso get emergency contraceptive pills without a prescription at most [facility]. Use a male condom with another form of control. It's the best way to prevent . ? You can use the condom with hormonal contraception, an intrauterine device (IUD), a diaphragm, a sponge, a shield, or a cervical cap. ? Don't use a male condom with a female condom. ? Use spermicide as its instructions say. Don't put spermicide inside a condom. If you or your partner gets a rash or feels itchy after using a latex condom, talk to your doctor. You may have a latex allergy. Where can you learn more? Log into your personal health record on https://SportsHedge.Xiimo and enter R522 in the Education box to learn more about Learning How to Use a Male Condom. Current as of: December 06, 2019 Content Version: 12.7 [email or web address]. Care instructions adapted under license by your healthcare professional. If you have questions about a medical condition or this instruction, always ask your healthcare professional. [email or web address] disclaims any warranty or liability for your use of this information. Elevated Blood Pressure: Care Instructions Your Care Instructions Blood pressure is a measure of how hard the blood pushes against the nunes of your arteries. It's normal for blood pressure to go up and down throughout the day. But if it stays up over time, you have high blood pressure. Two numbers tell you your blood pressure. The first number is the systolic pressure. It shows how hard the blood pushes when your heart is pumping. The second number is the diastolic pressure. It shows how hard the blood pushes between heartbeats, when your heart is relaxed and filling with blood. An ideal blood pressure in adults is less than 120/80 (say 120 over 80 ). High blood pressure is 140/90 or higher. You have high blood pressure if your top number is 140 or higher or your bottom number is 90 or higher, or both. The main test for high blood pressure is simple, fast, and painless. To diagnose high blood pressure, your doctor will test your blood pressure at different times. After testing your blood pressure, your doctor may ask you to test it again when you are home. If you are diagnosed with high blood pressure, you can work with your doctor to make a long-term plan to manage it. Follow-up care is a lennon part of your treatment and safety. Be sure to make and go to all appointments, and call your doctor if you are having problems. It's also a good idea to know your test resultsand keep a list of the medicines you take. How can you care for yourself at home? Do not smoke. Smoking increases your risk for heart attack and stroke. If you need help quitting, talk to your doctor about stop-smoking programs and medicines. These can increase your chances of quitting for good. Stay at a healthy weight. Try to limit how much sodium you eat to less than 2,300 milligrams (mg) a day. Your doctor may ask you to try to eat less than 1,500 mg a day. Be physically active. Get at least 30 minutes of exercise on most days of the week. Walking is a good choice. You also may want to do other activities, such as running, swimming, cycling, or playing tennis or team sports. Avoid or limit alcohol. Talk to your doctor about whether you can drink any alcohol. Eat plenty of fruits, vegetables, and low-fat dairy products. Eat less saturated and total fats. Learn how to check your blood pressure at home. When should you call for help? Call your doctor now or seek immediate medical care if: ? Your blood pressure is much higher than normal (such as 180/110 or higher). ? You think high blood pressure is causing symptoms such as: Severe headache. Blurry vision. ?Watch closely for changes in your health, and be sure to contact your doctor if: ? You do not get better as expected. Where can you learn more? Log into your personal health record on https://SportsHedge.Xiimo and enter F644 in the Education box to learn more about Elevated Blood Pressure: Care Instructions. Current as of: March 04, 2017 Content Version: 11.6 4173-4216 [email or web address]. Care instructions adapted under license by your healthcare professional. If you have questions about a medical condition or this instruction, always ask your healthcare professional. [email or web address] disclaims any warranty or liability for your use of this information. documented in this encounter* Satnam Andrade CNP - 01/13/2021 2:21 PM EDT Patient Name: [facility] Location: [place] [address] [place] [address], [address] [facility] [id number] Date Of : Date Of Visit: 1995 01/13/2021 MRN# Provider: [id number] Satnam Andrade CNP Chief Complaint Patient presents with Exposure to STD itchy to top of private, and white discharge x this week. Pt wants to be tested. Pee is really yellow. Pt said they were exposed to hep C in the past. Has not had further treatment. Assessment & Plan 1. Urethritis Chlamydia/GC/Trichomonas Amplified RNA Ambulatory referral to Family Medicine fluconazole (DIFLUCAN) 150 MG tablet 2. Elevated blood pressure reading No follow-ups on file. Medical Decision Making See HPI. See Exam findings. Vital signs reviewed. Blood pressure elevated. Complains of itching penis onset recently the past week. There was a whitish type of discharge. Concerned about exposure to Hepatitis C. On exam there was no obvious discharge or lesion present. A possible cause of symptoms is mild balanitis. Discussed this with the patient and patient was agreeable to take treatment for possible balanitis. Discussed urine testing for gonorrhea chlamydia and trichomoniasis and patient was agreeable. We discussed the limits of urgent care evaluation and treatment. Diagnosis Urethritis .Differential considered included balanitis, dermatitis, gonorrhea, genital wart, chlamydia, trichomonas, herpes . Plan: Take treatment today Fluconazole for possible balanitis fungal infection. Urinetesting for gonorrhea, chlamydia, and trichomonas will take 1-3 days to complete. Expect phone callfrom urgent care regarding test results and any recommended treatment. Referral for a primary care provider. Make a follow up appointment with your primary care provider as soon as possible within the next week for further evaluation and treatment. Discuss STD testing with primary care provider including viral hepatitis, syphilis, HIV. If symptoms worsen, change, or new symptoms develop go instead immediately to the nearest emergency room for further evaluation and treatment. Warning of hypertension or pre-hypertension: The patient has been informed that they may have pre-hypertension or hypertension based on the blood pressure reading in the Urgent Care today. I recommend that the patient call the primary care provider promptly to arrange follow-up for further evaluation as soon as possible of possible hypertension or pre-hypertension. Prior to the conclusion of the encounter the nursepractitioner discussed with the patient the diagnosis, treatment plan, and follow up recommendation. Questions were answered until the patient expressed satisfaction that they had no further question, comment or concern. [facility] COVID-19 Mask Status: Does the patient have classic COVID-19 symptoms? No, the patient does not have COVID-19 symptoms Subjective 25 y.o. male presents with Exposure to STD (itchy to top of private, and white discharge x this week. Pt wants to be tested. Pee is really yellow. Pt said they were exposed to hep C in the past. Has not had further treatment. ) Complains of itching penis onset recently the past week. There was a whitish type of discharge. Concerned about exposure to Hepatitis C. Review Of Systems Review of Systems Constitutional: Negative for fever. Respiratory: Negative for cough. Cardiovascular: Negative for chest pain. Gastrointestinal: Negative for vomiting. Genitourinary: Positive for discharge. Negative for dysuria, genital sores, penile pain, penile swelling, scrotal swelling, testicular pain and urgency. Musculoskeletal: Negative for myalgias. Skin: Negative for rash and wound. Neurological: Negative for weakness. Hematological: Negative for adenopathy. Psychiatric/Behavioral: Negative for confusion and decreased concentration. Medical History History reviewed. No pertinent past medical history. Past Surgical History: Procedure Laterality Date NECK SURGERY There is no problem list on file for this patient. Social History Social History Tobacco Use Smoking status: Former Smoker Quit date: 03/03/2018 Years since quittin.8 Smokeless tobacco: Never Used Substance Use Topics Alcohol use: Yes Comment: daily Drug use: Never Family History History reviewed. No pertinent family history. Objective Physical Exam BP (!) 140/93 Pulse 77 Temp 98 F (36.7 C) (Oral) Resp 16 Wt 82.1 kg (181 lb) SpO2 97% BMI 27.52 kg/m Vision/Hearing Exam:No exam data present Physical Exam Constitutional: General: He is not in acute distress. Appearance: He is well-developed. He is not diaphoretic. HENT: Head: Normocephalic and atraumatic. Right Ear: External ear normal. Left Ear: External ear normal. Eyes: General: Right eye: No discharge. Left eye: No discharge. Conjunctiva/sclera: Conjunctivae normal. Neck: Musculoskeletal: Normal range of motion and neck supple. Pulmonary: Effort: Pulmonary effort is normal. No respiratory distress. Abdominal: General: There is no distension. Genitourinary: Penis: Circumcised. No erythema, discharge or swelling. Comments: Robin Neri manager pharmaceutical No obvious discharge or lesions of penis Musculoskeletal: Normal range of motion. Skin: General: Skin is warm and dry. Capillary Refill: Capillary refill takes less than 2 seconds. Findings: No rash. Neurological: General: No focal deficit present. Mental Status: He is alert and oriented to person, place, and time. Motor: No weakness. Coordination: Coordination normal. Psychiatric: Behavior: Behavior normal. Thought Content: Thought content normal. Judgment: Judgment normal. Procedure Notes Procedures Results No results found for this or any previous visit (from the past 168 hour(s)). No orders to display Orders Placed This Visit Orders Placed This Encounter Procedures Chlamydia/GC/Trichomonas Amplified RNA Ambulatory referral to Family Medicine Medication List At End Of Visit Current Outpatient Medications Medication Sig Dispense Refill olopatadine (PATANOL) 0.1 % ophthalmic solution albuterol 90 mcg/actuation inhaler Inhale 2 (two) puffs every 6 (six) hours as needed . (Patient not taking: Reported on 01/13/2021 .) 1 Inhaler 0 fluconazole (DIFLUCAN) 150 MG tablet Take 1 (one) tablet (150 mg total) by mouth once for 1 dose . 1 tablet 0 fluticasone propionate (FLONASE) 50 mcg/actuation nasal spray Instill 2 (two) sprays into each nostril daily . (Patient not taking: Reported on 01/13/2021 .) 16 g 0 No current facility-administered medications for this visit. Patient Instructions Plan: Take treatment today Fluconazole for possible balanitis fungal infection. Urine testing for gonorrhea, chlamydia, and trichomonas will take 1-3 days to complete. Expect phone call from urgent care regarding test results and any recommended treatment. Referral for a primary care provider. Makea follow up appointment with your primary care provider as soon as possible within the next week for further evaluation and treatment. Discuss STD testing with primary care provider including viral hepatitis, syphilis, HIV. If symptoms worsen, change, or new symptoms develop go instead immediately to the nearest emergency room for further evaluation and treatment. Warning of hypertension or pre-hypertension: The patient has been informed that they may have pre-hypertension or hypertension based on the blood pressure reading in the Urgent Care today. I recommend that the patient call the primary care provider promptly to arrange follow-up for further evaluation as soon as possible of possible hypertension or pre-hypertension. Urethritis: Care Instructions Your Care Instructions Urethritis is an infection of the tube that takes urine from the bladder to the outside of the body. This tube is called the urethra. The infection is often caused by bacteria. This can happen if you have a sexually transmitted infection (STI). But a virus may also be a cause. Urethritis is usually treated with antibiotics. Most cases clear up with treatment. Proper treatment is very important. If you don't treat it, the infection can lead to lasting damage of the urethra.Other parts of the urinary system can also be damaged. Follow-up care is a lennon part of your treatment and safety. Be sure to make and go to all appointments, and call your doctor if you are having problems. It's also a good idea to know your test resultsand keep a list of the medicines you take. How can you care for yourself at home? If your doctor prescribed antibiotics, take them as directed. Do not stop taking them just because you feel better. You need to take the full course of antibiotics. Take an kjkv-pgi-reyotzs pain medicine, such as acetaminophen (Tylenol), ibuprofen (Advil, Motrin),or naproxen (Aleve), if needed. Be safe with medicines. Read and follow all instructions on the label. Do not take two or more pain medicines at the same time unless the doctor told you to. Many pain medicines have acetaminophen, which is Tylenol. Too much acetaminophen (Tylenol) can be harmful. Your doctor may have you take phenazopyridine (Pyridium). This is a pain medicine for the urinary tract. It can turn your urine a deep red-orange. This is normal. Call your doctor if you think you are having a problem with your medicine. Do not have sex until you are done with treatment. If you do have sex, be sure to use a condom. Your sex partner or partners should be tested too if your urethritis was caused by an STI. If your infection was caused by an injury or chemicals, avoid those things if you can. When should you call for help? Call your doctor now or seek immediate medical care if: You can't urinate. You have symptoms of a urinary infection. For example: ? You have blood or pus in your urine. ? You have pain in your back just below your rib cage. This is called flank pain. ? You have a fever, chills, or body aches. ? It hurts to urinate. ? You have groin or belly pain. You have a hard time urinating when your bladder is full. You notice mental changes or feel confused. Watch closely for changes in your health, and be sure to contact your doctor if: You do not get better as expected. Where can you learn more? Log into your personal health record on [email or web address]://[employer]t.Xiimo and enter G078 in the Education box to learn more about Urethritis: Care Instructions. Current as of: April 23, 2020 Content Version: 12.7 [email or web address]. Care instructions adapted under license by your healthcare professional. If you have questions about a medical condition or this instruction, always ask your healthcare professional. [email or web address] disclaims any warranty or liability for your use of this information. Balanitis: Care Instructions Your Care Instructions Balanitis is irritation of the head of the penis. It is more common in men who have not been circumcised. The area under the foreskin that covers the head of the penis is often warm and moist. This can cause the growth of bacteria or a fungus. This can make the penis sore, red, swollen, and itchy. You may also feel burning when you urinate, have pus come from your penis, or have chills and a fever. Balanitis can also be caused by the chemicals in soap, condoms, or lubricants. Men with diabetes are more likely to get balanitis. Your doctor may suggest a cream that usually clears up the problem within 2 weeks. You can prevent balanitis by keeping your penis clean. You also can help prevent it by not using products that causeirritation. Follow-up care is a lennon part of your treatment and safety. Be sure to make and go to all appointments, and call your doctor if you are having problems. It's also a good idea to know your test resultsand keep a list of the medicines you take. How can you care for yourself at home? Be safe with medicines. Take your medicine exactly as prescribed. If your doctor prescribed antibiotics, take them as directed. Do not stop taking them just because you feel better. You need to take the full course of antibiotics. Keep your penis clean. If you have not been circumcised, gently pull the foreskin back to wash yourpenis with warm water. Make sure your penis is dry before you get dressed. If latex condoms irritate your penis, try other condoms that are made for sensitive skin. Your doctor can help you make a good choice. Wash your underwear with mild soap. Rinse it well. If you work with harsh chemicals, wash your hands well before you go to the bathroom. When should you call for help? Call your doctor now or seek immediate medical care if: You have signs of infection, such as: ? Increased pain, swelling, warmth, or redness. ? Red streaks leading from the area. ? Pus draining from the area. ? A fever. Watch closely for changes in your health, and be sure to contact your doctor if: You do not get better as expected. Where can you learn more? Log into your personal health record on https://MyChart.Xiimo and enter S742 in the Education box to learn more about Balanitis: Care Instructions. Current as of: December 06, 2019 Content Version: 12.7 [email or web address]. Care instructions adapted under license by your healthcare professional. If you have questions about a medical condition or this instruction, always ask your healthcare professional. [email or web address] disclaims any warranty or liability for your use of this information. Learning How to Use a Male Condom What is a male condom? Condoms can be used to prevent . They can also help protect against sexually transmitted infections (STIs). You must use a new condom every time you have sex. Condoms prevent by keeping sperm and eggs apart. The condom holds the sperm so the sperm can't get into the vagina. A male condom is a tube of soft rubber or plastic with a closed end. It fits over the penis. There are many kinds of male condoms. Some condoms are lubricated. Some are ribbed. Most have a reservoir tip for holding the semen. You can also buy condoms of different sizes. How do you use a condom? Condoms work best if you follow these steps. Use a new condom each time you have sex. Check the condom's expiration date. Do not use it past that date. When opening the condom wrapper, be sure not to poke a hole in the condom with your fingernails, teeth, or other sharp objects. Put the condom on as soon as the penis is hard (erect) and before any sexual contact with your partner. ? First, hold the tip of the condom and squeeze out the air. This leaves room for the semen after you ejaculate. ? If you are not circumcised, pull down the loose skin from the head of the penis (foreskin) beforeyou put on the condom. ? Hold on to the tip of the condom as you unroll the condom. Unroll it all the way down to the baseof the penis. After you ejaculate, hold on to the condom at the base of the penis, and withdraw from your partnerwhile your penis is still erect. This will keep semen from spilling out of the condom. Wash your hands after you handle a used condom. How do you buy and store condoms? Male condoms may be available for free at family planning clinics. You can buy them without a prescription at drugstores, online, and in some grocery stores. Keep condoms wrapped in their original packages until you are ready to use them. Store them in a cool, dry place out of direct sunlight. Don't keep rubber (latex) condoms in a glove compartment or other hot places for a long time. Heat weakens latex and increases the chance that the condom will break. Don't use condoms in damaged packages. And don't use condoms that are brittle, sticky, or discolored, even if they are not past their expiration date. What else do you need to know? To protect yourself and your partner from STIs, use a condom during vaginal, oral, or anal sex. If the condom breaks or you think sperm may have leaked out into the vagina, the woman can use emergency contraception to help prevent . The most effective emergency contraception is prescribed by a doctor. This includes the copper IUD (inserted by a doctor) or a prescription pill. You canalso get emergency contraceptive pills without a prescription at [facility]. Use a male condom with another form of control. It's the best way to prevent . ? You can use the condom with hormonal contraception, an intrauterine device (IUD), a diaphragm, a sponge, a shield, or a cervical cap. ? Don't use a male condom with a female condom. ? Use spermicide as its instructions say. Don't put spermicide inside a condom. If you or your partner gets a rash or feels itchy after using a latex condom, talk to your doctor. You may have a latex allergy. Where can you learn more? Log into your personal health record on https://SportsHedge.Xiimo and enter R522 in the Education box to learn more about Learning How to Use a Male Condom. Current as of: December 06, 2019 Content Version: 12.7 [email or web address]. Care instructions adapted under license by your healthcare professional. If you have questions about a medical condition or this instruction, always ask your healthcare professional. [email or web address] disclaims any warranty or liability for your use of this information. Elevated Blood Pressure: Care Instructions Your Care Instructions Blood pressure is a measure of how hard the blood pushes against the nunes of your arteries. It's normal for blood pressure to go up and down throughout the day. But if it stays up over time, you have high blood pressure. Two numbers tell you your blood pressure. The first number is the systolic pressure. It shows how hard the blood pushes when your heart is pumping. The second number is the diastolic pressure. It shows how hard the blood pushes between heartbeats, when your heart is relaxed and filling with blood. An ideal blood pressure in adults is less than 120/80 (say 120 over 80 ). High blood pressure is 140/90 or higher. You have high blood pressure if your top number is 140 or higher or your bottom number is 90 or higher, or both. The main test for high blood pressure is simple, fast, and painless. To diagnose high blood pressure, your doctor will test your blood pressure at different times. After testing your blood pressure, your doctor may ask you to test it again when you are home. If you are diagnosed with high blood pressure, you can work with your doctor to make a long-term plan to manage it. Follow-up care is a lennon part of your treatment and safety. Be sure to make and go to all appointments, and call your doctor if you are having problems. It's also a good idea to know your test resultsand keep a list of the medicines you take. How can you care for yourself at home? Do not smoke. Smoking increases your risk for heart attack and stroke. If you need help quitting, talk to your doctor about stop-smoking programs and medicines. These can increase your chances of quitting for good. Stay at a healthy weight. Try to limit how much sodium you eat to less than 2,300 milligrams (mg) a day. Your doctor may ask you to try to eat less than 1,500 mg a day. Be physically active. Get at least 30 minutes of exercise on most days of the week. Walking is a good choice. You also may want to do other activities, such as running, swimming, cycling, or playing tennis or team sports. Avoid or limit alcohol. Talk to your doctor about whether you can drink any alcohol. Eat plenty of fruits, vegetables, and low-fat dairy products. Eat less saturated and total fats. Learn how to check your blood pressure at home. When should you call for help? Call your doctor now or seek immediate medical care if: ? Your blood pressure is much higher than normal (such as 180/110 or higher). ? You think high blood pressure is causing symptoms such as: Severe headache. Blurry vision. ?Watch closely for changes in your health, and be sure to contact your doctor if: ? You do not get better as expected. Where can you learn more? Log into your personal health record on https://[employer].Proximus.Aristotle Circle and enter F644 in the Education box to learn more about Elevated Blood Pressure: Care Instructions. Current as of: March 04, 2017 Content Version: 11.6 9892-7442 [email or web address]. Care instructions adapted under license by your healthcare professional. If you have questions about a medical condition or this instruction, always ask your healthcare professional. [email or web address] disclaims any warranty or liability for your use of this information. documented in this encounter* Otilio Mendoza DO - 02/06/2021 3:38 PM EDT Ophthalmology Clinic Note Patient Name: Henok Douglass MR #: [id number] : 1995 Physicians: Physician No (Family); No ref. provider found (Referring) Ocular Medications: Outpatient Medications Marked as Taking for the 02/06/21 encounter (Evaluation) with Otilio Mendoza DO Medication Sig Dispense Refill olopatadine (PATANOL) 0.1 % ophthalmic solution tobramycin-dexamethasone (TOBRADEX) 0.3-0.1 % ophthalmic suspension INSTILL 1 DROP INTO AFFECTED EYE 3 TIMES A DAY Assessment/Plan 1. Allergic conjunctivitis of right eye - Very Mild irritation of palpebral conjunctiva. Pt complains of itching and mild pressure sensation that is irritating and causes him to rub his eye. Has tried olopatadine and tobradex with mild relief prescribed by Dr. Lewis. He hasn't used these drops lately. - Recommend trying FML drop TID to right eye - Deferred dilated exam today because he has to work. Recheck 1 week with dilated exam. Orders for next visit: None Additional MDM: Communication regarding today's evaluation/management sent to external provider(s) Ophthalmic Testing/Examination: Base Eye Exam Visual Acuity (Snellen - Linear) Right Left Dist sc 20/20 20/20 Near sc J1+ J1+ Tonometry (Applanation, 3:08 PM) Right Left Pressure 19 19 Pupils Pupils Shape Right PERRL Round Left PERRL Round Visual Orozco Right Left Full Full Extraocular Movement Right Left Full Full Neuro/Psych Oriented x3: Yes Mood/Affect: Normal Slit Lamp and Fundus Exam External Exam Right Left External Normal Normal Slit Lamp Exam Right Left Lids/Lashes Normal Normal Conjunctiva/Sclera mild papillary reaction in conj mild papillary reaction in conj Cornea Clear Clear Anterior Chamber Deep and quiet Deep and quiet Iris Round and reactive Round and reactive Lens Clear Clear XR Chest AP/LAT Narrative: IMAGING PT NAME: HENOK DOUGLASS MR #: [id number] : 1995 SEX: M ROOM #: ORDERING PHYS:Trinidad Alonso MD ORD START 01/03/2015 13:46 DATE/TIME: [facility] CODE: EDM EXAM: CHEST 2 VIEWS PACS #: [id number] SYMPTOMS/INDICATIONS: :COUGH Final Report CHEST 2 VIEWS: CLINICAL HISTORY: Cough for 3 days. TECHNIQUE: PA and lateral views of chest. COMPARISON: The prior study of 05/17/2014 is compared. FINDINGS: The lung orozco do not show an acute infiltrate. The heart size is normal. No mediastinal mass is seen or pleural effusion noted. The bony structures are intact. Lung volumes show a slight increase with some flattening of the diaphragmatic margins posteriorly on the lateral view. Impression: No acute infiltrates are noted. Minimal hyperinflation is seen which may suggest some degree of underlying asthma. Jose De Jesus Tristan MD This document has been electronically verified and Signed by the above signed dictating physician. DM/pws S: 01/03/2015 U: 01/03/2015 Job #: [id number] IMAGING Page 1 of 1 COPY Subjective Chief Complaint/Reason for Visit: HPI Chief complaint: Irritation of the right eye Location: Right eye Timing: All the time Severity: Moderate Duration: years Associated problems: blurred vision at time, eye makes squeak noise . Hasn't been using Rx drops from Dr. Lewis. Used the olopatadine and tobradex BID for awhile and that mildly improved symptoms. Ocular Surgical Hx: - No Known ocular surgical history No results found for: HGBA1C Last edited by Otilio Mendoza DO on 02/06/2021 3:36 PM. (History) History reviewed. No pertinent past medical history. Family History Problem Relation Age of Onset Cataracts Maternal Grandmother Glaucoma Neg Hx Macular degeneration Neg Hx Retinal detachment Neg Hx documented in this encounter* Otilio Mendoza DO - 02/06/2021 3:38 PM EDT Ophthalmology Clinic Note Patient Name: Henok Douglass MR #: [id number] : 1995 Physicians: Physician No (Family); No ref. provider found (Referring) Ocular Medications: Outpatient Medications Marked as Taking for the 02/06/21 encounter (Evaluation) with Otilio Mendoza, Medication Sig Dispense Refill olopatadine (PATANOL) 0.1 % ophthalmic solution tobramycin-dexamethasone (TOBRADEX) 0.3-0.1 % ophthalmic suspension INSTILL 1 DROP INTO AFFECTED EYE 3 TIMES A DAY Assessment/Plan 1. Allergic conjunctivitis of right eye - Very Mild irritation of palpebral conjunctiva. Pt complains of itching and mild pressure sensation that is irritating and causes him to rub his eye. Has tried olopatadine and tobradex with mild relief prescribed by Dr. Lewis. He hasn't used these drops lately. - Recommend trying FML drop TID to right eye - Deferred dilated exam today because he has to work. Recheck 1 week with dilated exam. Orders for next visit: None Additional MDM: Communication regarding today's evaluation/management sent to external provider(s) Ophthalmic Testing/Examination: Base Eye Exam Visual Acuity (Snellen - Linear) Right Left Dist sc 20/20 20/20 Near sc J1+ J1+ Tonometry (Applanation, 3:08 PM) Right Left Pressure 19 19 Pupils Pupils Shape Right PERRL Round Left PERRL Round Visual Orozco Right Left Full Full Extraocular Movement Right Left Full Full Neuro/Psych Oriented x3: Yes Mood/Affect: Normal Slit Lamp and Fundus Exam External Exam Right Left External Normal Normal Slit Lamp Exam Right Left Lids/Lashes Normal Normal Conjunctiva/Sclera mild papillary reaction in conj mild papillary reaction in conj Cornea Clear Clear Anterior Chamber Deep and quiet Deep and quiet Iris Round and reactive Round and reactive Lens Clear Clear XR Chest AP/LAT Narrative: IMAGING PT NAME: HENOK DOUGLASS MR #: [id number] : 1995 SEX: M ROOM #: ORDERING PHYS:Trinidad Alonso MD ORD START 01/03/2015 13:46 DATE/TIME: [facility] CODE: EDM EXAM: CHEST 2 VIEWS PACS #: [id number] SYMPTOMS/INDICATIONS: :COUGH Final Report CHEST 2 VIEWS: CLINICAL HISTORY: Cough for 3 days. TECHNIQUE: PA and lateral views of chest. COMPARISON: The prior study of 05/17/2014 is compared. FINDINGS: The lung orozco do not show an acute infiltrate. The heart size is normal. No mediastinal mass is seen or pleural effusion noted. The bony structures are intact. Lung volumes show a slight increase with some flattening of the diaphragmatic margins posteriorly on the lateral view. Impression: No acute infiltrates are noted. Minimal hyperinflation is seen which may suggest some degree of underlying asthma. Jose De Jesus Tristan MD This document has been electronically verified and Signed by the above signed dictating physician. DM/pws S: 01/03/2015 U: 01/03/2015 Job #: [id number] IMAGING Page 1 of 1 COPY Subjective Chief Complaint/Reason for Visit: HPI Chief complaint: Irritation of the right eye Location: Right eye Timing: All the time Severity: Moderate Duration: years Associated problems: blurred vision at time, eye makes squeak noise . Hasn't been using Rx drops from Dr. Lewis. Used the olopatadine and tobradex BID for awhile and that mildly improved symptoms. Ocular Surgical Hx: - No Known ocular surgical history No results found for: HGBA1C Last edited by Otilio Mendoza DO on 02/06/2021 3:36 PM. (History) History reviewed. No pertinent past medical history. Family History Problem Relation Age of Onset Cataracts Maternal Grandmother Glaucoma Neg Hx Macular degeneration Neg Hx Retinal detachment Neg Hx documented in this encounter Reason for Referral Status Reason Specialty Diagnoses / Procedures Referred By Contact Referred To Contact Authorized Primary Care Diagnoses Urethritis Satnam Andrade, [id number] [place] [address] [place] [address] [address] [place] [address] Status Reason Specialty Diagnoses / Procedures Referred By Contact Referred To Contact Authorized Specialty Services Required/Patient 's Best Interest Urology Diagnoses Dysuria Musa Hilliard MD [address] [place] [address] Clarita Armijo PA-C [address] [facility] [place] [address] Summary Purpose Family History No Family History Records FoundNo Family History Records FoundNo Family History Records FoundNo Family History Records Found Additional Source Comments ED Provider Notes - Inocencio Watson PA-C - 04/30/2018 4:09 PM EDTED Notes - Aaron Mason RN - 04/30/2018 3:10 PM EDTED Attestation Note - Guillaume Loyd MD - 03/03/2019 6:41 PM EDT Miscellaneous Notes (unrecog nized section and content) Formatting of this note may be different from the original. ED PROVIDER NOTE [facility] EMERGENCY DEPARTMENT NAME: Henok Douglass AGE: 22 y.o. : 1995 VISIT DATE: 04/30/2018 CSN: [id number] PCP: Inocencio Christianson MD Clinical Impression: SNOMED CT(R) 1. Pharyngitis, unspecified etiology PHARYNGITIS Henok has come to the emergency department today for complaints of a sore throat. I considered epiglottitis, abscess, diphtheria, mono, chaya s angina, and foreign body. Currently there is no airway compromise, no evidence of dehydration, and he is currently tolerating fluids. Provided him with education on symptomatic relief for outpatient management. Will f/u on throat cx. Will discharge with follow up in 2-3 days to recheck today's complaints. Return for worsening symptoms or concerns. Follow-up Information 1. [facility]. Why: As needed, recheck today's complaints [address] [facility] [address] [phone] [facility] Emergency Department. Specialty: Emergency Medicine Why: As needed, If symptoms worsen [address] [facility] [address] Contact information for after-discharge care Follow-up information has not been specified. MDM Number of Diagnoses or Management Options Pharyngitis, unspecified etiology: Amount and/or Complexity of Data Reviewed Clinical lab tests: ordered and reviewed Patient Progress Patient progress: stable Chief Complaint Patient presents with Sore Throat HPI Patient is a 22-year-old male presenting to the emergency room concerns of 3-4-day history of sore throat. Patient states that primarily he is having some pain to the right side of his throat. States he has also had some sinus congestion, rhinorrhea, and slight cough. He denies any intervention at this time. Denies any fever, chills headache chest pain, otalgia, difficulty swallowing, drooling, change was quality, chest pain, shortness of breath, sputum production, abdominal pain, nausea, vomiting, diarrhea, rash. No known sick contacts, and as noted above, there have been no interventions at this time. History reviewed. No pertinent past medical history. No past surgical history on file. History reviewed. No pertinent family history. Social History Social History Marital status: Single Spouse name: N/A Number of children: N/A Years of education: N/A Occupational History Not on file. Social History Main Topics Smoking status: Not on file Smokeless tobacco: Not on file Alcohol use Not on file Drug use: Unknown Sexual activity: Not on file Other Topics Concern Not on file Social History Narrative No narrative on file Previous Medications No medications on file No Known Allergies Review of Systems Positives and pertinent negatives as per HPI. All other systems were reviewed and are negative. Patient Vitals for the past 24 hrs: BP Temp Temp src Pulse Resp SpO2 Height Weight 04/30/18 1512 125/80 98.2 ?F (36.8 ?C) Oral (!) 57 16 98 % 5' 8 65.9 kg (145 lb 4.5 oz) Physical Exam Constitutional: He is oriented to person, place, and time. He appears well- developed and well-nourished. No distress. HENT: Head: Normocephalic and atraumatic. Right Ear: Tympanic membrane and ear canal normal. Left Ear: Tympanic membrane and ear canal normal. Nose: No rhinorrhea. Right sinus exhibits no maxillary sinus tenderness and no frontal sinus tenderness. Left sinus exhibits no maxillary sinus tenderness and no frontal sinus tenderness. Mouth/Throat: Uvula is midline and oropharynx is clear and moist. No oropharyngeal exudate, posterior oropharyngeal edema, posterior oropharyngeal erythema or tonsillar abscesses. No tonsillar exudate. Neck: Normal range of motion. Neck supple. Cardiovascular: Normal rate, normal heart sounds and intact distal pulses. Pulmonary/Chest: Effort normal and breath sounds normal. No stridor. No respiratory distress. He has no wheezes. Abdominal: Soft. Bowel sounds are normal. There is no tenderness. There is no guarding. Lymphadenopathy: He has no cervical adenopathy. Neurological: He is alert and oriented to person, place, and time. Skin: Skin is warm. Capillary refill takes less than 2 seconds. No rash noted. He is not diaphoretic. No erythema. No pallor. Nursing note and vitals reviewed. Laboratory & Radiographic Imaging (if done): Results for orders placed or performed during the hospital encounter of 04/30/18 Rapid Strep Screen Result Value Ref Range Strep A Ag Presumptive Negative for Group A Streptococcus Presumptive Negative for Group A Streptococcus No orders to display Procedures The patient has been informed that they may have pre-hypertension or hypertension based on a blood pressure reading in the Emergency Department. I recommend that the patient call the primary care provider listed on their discharge instructions or a physician of their choice as soon as possible to arrange follow-up in the next 4 weeks for further evaluation of possible pre-hypertension or hypertension. . New Prescriptions No medications on file (Please note that portions of this note may have been completed with a voice recognition software. Efforts were made to correct any errors, but occasionally words are mis-transcribed.) Inocencio Watson PA-C 04/30/18 1613 I have a sore throat and it hurts when I swallow. per ptin this encounter ED Attestation: I was personally available for consult in the ED for this patient, if the Advanced Practice Provider (PAPO) needed any assistance. The PAPO evaluated the patient independently for a complaint of Breast Discharge, and completed their own examination, documentation, and discharge. Guillaume Loyd M.D. [facility] Emergency Department documented in this encounter ED Attestation: I was personally available for consult in the ED for this patient, if the Advanced Practice Provider (PAPO) needed any assistance. The PAPO evaluated the patient independently for a complaint of Numbness, and completed their own examination, documentation, and discharge. Rodger Morse MD Emergency Department Physician documented in this encounter Addended by: OTILIO MENDOZA on: 02/07/2021 10:02 AM Modules accepted: Orders documented in this encounter Reason for Visit (unrecogniz ed section and content) Reason Comments Sore Throat Reason Comments Sore Throat pt thinks strep, andrzej d to swalling, has white stuff on back of throat . started hurting 2 days ago, noticed the white yesterday. no cough, no fever Reason Comments Fever diarrhea, 6 days Reason Comments Numbness left arm Reason Comments Numbness Reason Comments Exposure to STD itchy to top of priv ate, and white discharge x this week. Pt wants to be tested. Pee is really yellow. Pt said they were exposed to hep C in the past. Has not had further treatment. Charly Johnston PA-C - 03/03/2019 6:41 PM EDCassie Giron MSW - 03/03/2019 6:40 PM Megan Lawson RN - 03/03/2019 5:38 PM Raven Cartagena RN - 01/29/2020 4:59 PM EDT ED Notes (unrecognized secti on and content) ED PROVIDER NOTE [facility] EMERGENCY DEPARTMENT NAME: Henok Douglass AGE: 23 y.o. : 1995 VISIT DATE: 03/03/2019 CSN: [id number] PCP: Inocencio Christianson MD Clinical Impression: SNOMED CT(R) 1. Breast pain in male PAIN OF BREAST 2. Nipple discharge DISCHARGE FROM [facility] ED Disposition ED Disposition Condition Comment Discharge Stable Henok Douglass discharged to home/self care in stable condition. Follow-up Information 1. [facility]. Why: For recheck of today's symptoms [address] [facility] [address] [phone] 2. Inocencio Christianson MD. Specialty: Family Medicine Why: For recheck of today's symptoms [address] [facility] [address] [facility] [address] [facility] Emergency Department. Specialty: Emergency Medicine Why: As needed, If symptoms worsen [address] [place] [phone] Contact information for after-discharge care Follow-up information has not been specified. MDM Number of Diagnoses or Management Options Breast pain in male: Nipple discharge: This is a 23-year-old male presents ED with breast pain. Patient reports pain over the left nipple area for about a week. He states also when he squeezes over the nipple he can expel a small amount of clear fluid. I did not visualize any deformity to the breast or nipple area. There are no skin changes, erythema, purulent discharge. Very small amount of serous fluid expelled from the nipple. No palpable masses noted. Patient is otherwise well-appearing. Patient's blood pressure slightly elevated but otherwise normal vital signs. I recommended ice, warm compresses, Tylenol, ibuprofen. I encouraged the patient to monitor the area closely and follow-up with PCP in 3 to 4 days for recheck. I discussed patient with attending physician who did not feel any emergent imaging or work-up needed at this time other than close observation and follow-up with PCP for persistent symptoms. Patient was informed of all findings and agreeable treatment plan. Patient was encouraged to return the ED for changing worsening of symptoms including changes to the skin of his breast, purulent drainage, fever, worsening pain. I considered gynecomastia, mastitis, skin infection, hormonal imbalances, breast cancer, etc. Chief Complaint Patient presents with Breast Discharge HPI This is a 23-year-old male with no pertinent past medical history presents ED with breast pain. Patient reports he has been having pain around his left breast and nipple area for about a week. Patient states that initially which is bothering him a little bit but states then he attempted to squeeze it and got a small amount of clear liquid out of the nipple. Patient reports that this concerned him and he began looking things up on the Internet and therefore came to the ED today. Patient reports he does not feel that the breast is swollen, red and he has not noticed any bumps or masses. Patient states he has not been taking any medication or doing anything at home for his symptoms. Patient does report that his grandmother and some other family members have had breast cancer. Patient reports he has been feeling otherwise healthy. He denies any pain or changes to the right breast. He denies any shortness of breath, fatigue, weight loss, or other ill symptoms. He denies any fever or chills. Patient denies taking any medications. History reviewed. No pertinent past medical history. History reviewed. No pertinent surgical history. History reviewed. No pertinent family history. Social History Socioeconomic History Marital status: Single Spouse name: Not on file Number of children: Not on file Years of education: Not on file Highest education level: Not on file Social Needs Financial resource strain: Not on file Food insecurity - worry: Not on file Food insecurity - inability: Not on file Transportation needs - medical: Not on file Transportation needs - non-medical: Not on file Occupational History Not on file Tobacco Use Smoking status: Former Smoker Last attempt to quit: 03/03/2018 Years since quittin.0 Smokeless tobacco: Never Used Substance and Sexual Activity Alcohol use: Yes Drug use: Never Sexual activity: Not on file Other Topics Concern Not on file Social History Narrative Not on file No current outpatient medications on file prior to encounter. No Known Allergies Review of Systems Constitutional: Negative for chills, fever and unexpected weight change. Respiratory: Negative for cough and shortness of breath. Cardiovascular: Negative for chest pain and leg swelling. Gastrointestinal: Negative for abdominal pain, diarrhea, nausea and vomiting. Musculoskeletal: Negative for joint swelling and myalgias. Skin: Negative for rash. Neurological: Negative for dizziness, syncope, weakness, light-headedness and headaches. All other systems reviewed and are negative. Positives and pertinent negatives as per HPI. All other systems were reviewed and are negative. Patient Vitals for the past 24 hrs: BP Temp Temp src Pulse Resp SpO2 Height Weight 03/03/19 1740 (!) 148/98 97.9 F (36.6 C) Oral 73 18 99 % 5' 8 79.4 kg (175 lb) Physical Exam Constitutional: He is oriented to person, place, and time. He appears well- developed and well-nourished. No distress. HENT: Head: Normocephalic and atraumatic. Mouth/Throat: Oropharynx is clear and moist. Eyes: Conjunctivae are normal. Pupils are equal, round, and reactive to light. Cardiovascular: Normal rate, regular rhythm, normal heart sounds and intact distal pulses. Pulmonary/Chest: Effort normal and breath sounds normal. He has no wheezes. He has no rales. Right breast exhibits no mass, no nipple discharge, no skin change and no tenderness. Left breast exhibits nipple discharge (Very small amount of serous fluid) and tenderness (Overlying the nipple area). Left breast exhibits no inverted nipple, no mass and no skin change. Lymphadenopathy: He has no cervical adenopathy. He has no axillary adenopathy. Right: No supraclavicular adenopathy present. Left: No supraclavicular adenopathy present. Neurological: He is alert and oriented to person, place, and time. Skin: Skin is warm. Capillary refill takes less than 2 seconds. Psychiatric: He has a normal mood and affect. His behavior is normal. Nursing note and vitals reviewed. Laboratory & Radiographic Imaging (if done): No results found for this visit on 03/03/19. No orders to display Procedures The patient has been informed that they may have pre-hypertension or hypertension based on a blood pressure reading in the Emergency Department. I recommend that the patient call the primary care provider listed on their discharge instructions or a physician of their choice as soon as possible to arrange follow-up in the next 4 weeks for further evaluation of possible pre-hypertension or hypertension. . Charly Johnston PA-C [facility] Emergency Department Charly Johnston PA-C 03/03/192027 ED SW provided patient with HCAP information and PCP information. ED SW provided anticipatory guidance regarding seeking a new PCP. Patient denies additional questions/needs at this time. Patient reports for the last week his left nipple will leak clear fluid when he squeezed it. documented in this encounter This RN into room wearing n95, goggles, gown, and gloves in order to obtain strep and covid swabs. Pt did remove his mask in order to obtain swabs, then placed mask back on. ED PROVIDER NOTE [facility] EMERGENCY DEPARTMENT NAME: Henok Douglass AGE: 24 y.o. : 1995 VISIT DATE: 01/29/2020 CSN: [id number] PCP: Physician No Clinical Impression: 1. Viral illness ED Disposition ED Disposition Condition Comment Discharge Stable Henok Douglass discharged to home/self care in stable condition. Follow-up Information 1. [facility]. [facility] [address] [place] [phone] Contact information for after-discharge care Follow-up information has not been specified. MDM Number of Diagnoses or Management Options Diagnosis management comments: Patient presents to the emergency department with complaint of sore throat, congestion and shortness of breath. Rapid strep is negative. Patient is not in any respiratory distress and has no hypoxia. I do feel he can be discharged home with outpatient follow-up. Covid 19 testing is pending. After my independent evaluation, he appears to have a self-limiting illness likely due to a viral URI. At this time, there is a no evidence of pneumonia, hypoxia, bacterial sinus infection, bacterial bronchitis, bacteremia, or sepsis. I discussed at length with Henok that there is concern for viral symptoms, this is potentially COVID infection and we discussed home quarantine, management of symptoms, and avoidance of contact with others. Henok is understanding of information at this time. Currently I do not see an indication for inpatient management and monitoring as he is oxygenating well, no signs of respiratory distress with clear lung sounds. I stressed importance of staying at home and avoiding contact with others to avoid additional spread of the infection. COVID testing obtained in the Emergency Department. Henok will be notified of the results. I also informed Henok that they can look for their test results on My Chart . In my medical opinion, I consider Henok to be stable for discharge. This is based on the information that was available to me at the time of this ED visit. As we discussed, he is to return to our ED immediately if there is any worsening of his condition, such as increased cough, shortness of breath, persistent fevers, repeated vomiting, dehydration, or if his condition worsens at all. Chief Complaint Patient presents with Sore Throat Patient presents to the emergency department with complaint of sore throat for the past week. He reports that he has had some runny nose and nasal congestion as well as some diarrhea. No abdominal pain. No chest pain. He denied any cough but admitted to some occasional difficulty breathing. No headache or neck stiffness. He does note that somebody at work was positive for brooks virus and he was concerned that he could have it. Nothing makes his symptoms better or worse. History reviewed. No pertinent past medical history. Past Surgical History: Procedure Laterality Date NECK SURGERY History reviewed. No pertinent family history. Social History Socioeconomic History Marital status: Single Spouse name: Not on file Number of children: Not on file Years of education: Not on file Highest education level: Not on file Occupational History Not on file Social Needs Financial resource strain: Not on file Food insecurity Worry: Not on file Inability: Not on file Transportation needs Medical: Not on file Non-medical: Not on file Tobacco Use Smoking status: Former Smoker Last attempt to quit: 03/03/2018 Years since quittin.9 Smokeless tobacco: Never Used Substance and Sexual Activity Alcohol use: Yes Drug use: Never Sexual activity: Not on file Lifestyle Physical activity Days per week: Not on file Minutes per session: Not on file Stress: Not on file Relationships Social connections Talks on phone: Not on file Gets together: Not on file Attends zoroastrian service: Not on file Active member of club or organization: Not on file Attends meetings of clubs or organizations: Not on file Relationship status: Not on file Other Topics Concern Not on file Social History Narrative Not on file No current outpatient medications on file prior to encounter. No Known Allergies Review of Systems Constitutional: Negative for chills and fever. HENT: Positive for congestion, rhinorrhea and sore throat. Respiratory: Positive for shortness of breath. Negative for cough and wheezing. Cardiovascular: Negative for chest pain, palpitations and leg swelling. Gastrointestinal: Positive for diarrhea and nausea. Negative for abdominal pain and vomiting. Musculoskeletal: Negative for neck stiffness. Skin: Negative for rash. Neurological: Negative for dizziness, syncope, weakness, light-headedness and headaches. All other systems reviewed and are negative. Positives and pertinent negatives as per HPI. All other systems were reviewed and are negative. Patient Vitals for the past 24 hrs: BP Temp Temp src Pulse Resp SpO2 Height Weight 01/29/20 1600 (!) 142/91 97.9 F (36.6 C) Oral 72 17 100 % 5' 8 77.1 kg (170 lb) Physical Exam Vitals signs and nursing note reviewed. Constitutional: General: He is not in acute distress. Appearance: He is not ill-appearing. HENT: Head: Normocephalic and atraumatic. Right Ear: External ear normal. Left Ear: External ear normal. Nose: Congestion present. Mouth/Throat: Mouth: Mucous membranes are moist. Pharynx: Posterior oropharyngeal erythema present. No oropharyngeal exudate. Eyes: Extraocular Movements: Extraocular movements intact. Conjunctiva/sclera: Conjunctivae normal. Pupils: Pupils are equal, round, and reactive to light. Neck: Musculoskeletal: Normal range of motion and neck supple. No neck rigidity. Cardiovascular: Rate and Rhythm: Normal rate and regular rhythm. Heart sounds: Normal heart sounds. Pulmonary: Effort: Pulmonary effort is normal. No respiratory distress. Breath sounds: Normal breath sounds. No wheezing or rhonchi. Abdominal: General: Bowel sounds are normal. There is no distension. Palpations: Abdomen is soft. Tenderness: There is no abdominal tenderness. There is no guarding or rebound. Musculoskeletal: Normal range of motion. General: No swelling or tenderness. Skin: General: Skin is warm and dry. Capillary Refill: Capillary refill takes less than 2 seconds. Findings: No erythema or rash. Neurological: General: No focal deficit present. Mental Status: He is alert and oriented to person, place, and time. Cranial Nerves: No cranial nerve deficit. Laboratory & Radiographic Imaging (if done): Results for orders placed or performed during the hospital encounter of 01/29/20 Rapid Strep Screen Result Value Ref Range Strep A Ag Presumptive Negative for Group A Streptococcus Presumptive Negative for Group A Streptococcus No orders to display Procedures The patient has been informed that they may have pre-hypertension or hypertension based on a blood pressure reading in the Emergency Department. I recommend that the patient call the primary care provider listed on their discharge instructions or a physician of their choice as soon as possible to arrange follow-up in the next 4 weeks for further evaluation of possible pre-hypertension or hypertension. . Sherrie Solorio DO, FACEP Attending Physician [facility] Emergency Department Sherrie Solorio DO 01/29/20 3446 Patient reports sore throat x1 week, Patient denies cough, fever. Patient reports he looked up symptoms for brooks virus and family has him anxious that he could have it. Patient works at [employer] and has been having temperature checked at work. Patient has mask in place upon arrival to triage documented in this encounter [facility] ED Physician Note: NAME: Henok Douglass 24 y.o. CSN: [id number] PCP: Physician No Clinical Impression: 1. Cervical radiculopathy Disposition: Patient is being discharged to home New Prescriptions predniSONE (Deltasone) 20 MG tablet Take 2 (two) tablets (40 mg total) by mouth daily for 5 days . cyclobenzaprine (FLEXERIL) 10 MG tablet Take 1 (one) tablet (10 mg total) by mouth 3 (three) times a day for 15 doses . Follow-up Information 1. [facility]. Why: Recheck of todays complaint [address] [facility] [address] [phone] [facility] Emergency Department. Specialty: Emergency Medicine Why: If symptoms worsen [address] [place] [address] Contact information for after-discharge care Follow-up information has not been specified. History: Chief Complaint: Numbness HPI: The history was obtained from the patient. He is a 24 y.o. male who presents with a chief complaint of Numbness. HPI patient presents to the emergency department stating for the past week he has had pain in the left side of his neck goes into his left shoulder and down his left arm. He reports having numbness and tingling in various aspects of his left arm. He states he sleeps with his arm up underneath his head and he thinks that may be causing it. He states he has had this happen before but usually just goes away on its own. He denies injury. He denies fevers or chills. Denies history of IV drug abuse. Denies weakness. No chest pain or difficulty breathing. No symptoms in his leg. No facial paresthesia or droop. He has not seen a PCP for this. Has not tried thing for his symptoms. He states he was concerned because he has an aunt who has had a stroke. He has not seen a PCP for this. PMHx: History reviewed. No pertinent past medical history. PMSx: Past Surgical History: Procedure Laterality Date NECK SURGERY FAM. Hx: History reviewed. No pertinent family history. SOC. Hx: Social History Socioeconomic History Marital status: Single Spouse name: Not on file Number of children: Not on file Years of education: Not on file Highest education level: Not on file Occupational History Not on file Social Needs Financial resource strain: Not on file Food insecurity Worry: Not on file Inability: Not on file Transportation needs Medical: Not on file Non-medical: Not on file Tobacco Use Smoking status: Former Smoker Quit date: 03/03/2018 Years since quittin.6 Smokeless tobacco: Never Used Substance and Sexual Activity Alcohol use: Yes Comment: daily Drug use: Never Sexual activity: Not on file Lifestyle Physical activity Days per week: Not on file Minutes per session: Not on file Stress: Not on file Relationships Social connections Talks on phone: Not on file Gets together: Not on file Attends zoroastrian service: Not on file Active member of club or organization: Not on file Attends meetings of clubs or organizations: Not on file Relationship status: Not on file Other Topics Concern Not on file Social History Narrative Not on file MEDs: Previous Medications Medication Sig albuterol 90 mcg/actuation inhaler Inhale 2 (two) puffs every 6 (six) hours as needed . fluticasone propionate (FLONASE) 50 mcg/actuation nasal spray Instill 2 (two) sprays into each nostril daily . ALL: No Known Allergies ROS: Review of Systems Constitutional: Negative for chills, fatigue and fever. Eyes: Negative for visual disturbance. Respiratory: Negative for cough and shortness of breath. Cardiovascular: Negative for chest pain. Gastrointestinal: Negative for diarrhea, nausea and vomiting. Musculoskeletal: Positive for neck pain. Skin: Negative for rash. Neurological: Positive for numbness. Negative for weakness and headaches. All other systems reviewed and are negative. Positives and pertinent negatives as per HPI. All other systems were reviewed and are negative. Physical Exam: Patient Vitals for the past 24 hrs: BP Temp Temp src Pulse Resp SpO2 Height Weight 10/16/20 1549 (!) 146/95 97.7 F (36.5 C) Infrared 69 16 98 % 5' 8 78.5 kg (173 lb) Physical Exam Vitals signs and nursing note reviewed. Constitutional: General: He is not in acute distress. Appearance: Normal appearance. He is not ill-appearing, toxic-appearing or diaphoretic. HENT: Head: Normocephalic and atraumatic. Right Ear: External ear normal. Left Ear: External ear normal. Eyes: Conjunctiva/sclera: Conjunctivae normal. Pupils: Pupils are equal, round, and reactive to light. Neck: Musculoskeletal: Normal range of motion. No neck rigidity. Comments: Pain over left lateral aspect of neck. Pain into left trapezius region/shoulder. No redness, swelling, bruising Cardiovascular: Rate and Rhythm: Normal rate and regular rhythm. Pulses: Normal pulses. Heart sounds: Normal heart sounds. Pulmonary: Effort: Pulmonary effort is normal. Breath sounds: Normal breath sounds. Musculoskeletal: Comments: Patient is forage motion of his left upper extremity. Is good radial ulnar pulse. Is good capillary refill. Sensation is intact. He has normal strength. He has normal triceps and biceps reflex. He has normal strength and sensation in all other extremities and normal reflexes. On exam of the left upper extremity there is no swelling, redness, bruising. He uses it freely without difficulty Skin: General: Skin is warm and dry. Neurological: General: No focal deficit present. Mental Status: He is alert and oriented to person, place, and time. Cranial Nerves: No cranial nerve deficit. Sensory: Sensation is intact. Motor: Motor function is intact. Coordination: Coordination is intact. Gait: Gait is intact. Deep Tendon Reflexes: Reflex Scores: Tricep reflexes are 2+ on the right side and 2+ on the left side. Bicep reflexes are 2+ on the right side and 2+ on the left side. Brachioradialis reflexes are 2+ on the right side and 2+ on the left side. Patellar reflexes are 2+ on the right side and 2+ on the left side. Laboratory & Radiological Imaging (if done): Labs Reviewed - No data to display No orders to display Procedures: Procedures ED Course/ Medical Decision Making: ED Course: Patient was seen and evaluated for above complaint. Discussed with patient symptoms seem be more related to cervical radiculopathy. Patient was concerned that he was having a stroke. Explained that his symptoms did not appear to be consistent with that. Please note it does report patient had previous neck surgery. Patient had a cyst removed from his lateral neck sometime ago but no actual spinal procedure. I did suggest obtaining CT scan but patient declines at this time. He states he is already been here for 1.5 hours and does not want to stay any longer. I suggested steroids, rest, try to change his sleeping position, avoid heavy lifting,, or any other thing that seems to exacerbate it. Patient appears well at this time moving it freely, texting with no difficulty. Again I did offer to perform advanced imaging and patient does refuse at this time. Explained following up with PCP. Discussed he may need physical therapy, referral to specialist, nerve conduction study. Discussed returning for worsening problems or concerns Medical Decision Making: Patient is afebrile, nontoxic no acute distress. Vital signs are stable. Patient has no focal neurological deficit. At this time patient appears to have cervical radiculopathy. He is had no traumatic injury to suggest fracture, malalignment or spinal cord injury. He has no risk for spinal abscess or hematoma. Patient did have concerns for stroke. He has no weakness. There is no symptoms in the leg. No facial droop, dysarthria. He has normal mental status. Again patient does decline advanced imaging at this time. No signs of infectious process. Arm is not swollen to suggest DVT. Good pulses and cap refill no signs to suggest arterial occlusion. I feel the patient can be discharged home at this time with follow-up and return for worse problems or concerns OARS report reviewed on this patient The patient has been informed that they may have pre-hypertension or hypertension based on a blood pressure reading in the Emergency Department. I recommend that the patient call the primary care provider listed on their discharge instructions or a physician of their choice as soon as possible to arrange follow-up in the next 4 weeks for further evaluation of possible pre-hypertension or hypertension. . Bertin Guevara PA-C ED Physician Director [facility] (Please note that portions of this note have been completed with a voice recognition software. Efforts were made to correct any errors, but occasionally words are mis-transcribed.) Bertin Guevara PA-C 10/16/20 2250 Patient reports that for the last week he has had numbness and tingling in the left arm and hand. States I have had this before like months ago and then it goes away. I have had it back for about a week now. It's like in my neck and shoulder and down my arm and in my hand documented in this encounter (unrecognized sect ion and content) No Status Records FoundNo Status Records FoundNo Status Records FoundNo Status Records Found INFORMATION SOURCE (unrecogn ized section and content) DATE CREATED AUTHOR AUTHOR'S ORGANIZ ATION 01/26/2022 [facility] DATE CREATED AUTHOR AUTHOR'S ORGANIZ ATION 06/04/2022 [facility] DATE CREATED AUTHOR AUTHOR'S ORGANIZ ATION 08/20/2022 [facility] Care FOR RECORDS PERTAINING TO PATIENTS WHO ARE OR HAVE BEEN ENROLLED IN A CHEMICAL DEPENDENCY/SUBSTANCEABUSE PROGRAM, SOME INFORMATION MAY BE OMITTED. This clinical summary was aggregated from multiple sources. Caution should be exercised in using it in the provision of clinical care. This summary normalizes information from multiple sources, and as a consequence, information in this document may materially change the coding, format and clinical context of patient data. In addition, data may be omitted in some cases. CLINICAL DECISIONS SHOULD BE BASED ON THE PRIMARY CLINICAL RECORDS. [facility] [facility]. provides no warranty or guarantee of the accuracy or completeness of information in this document.
== END 2023-10-31 18:07 | disposition home or self-care (01) ==
LOC: ED 18:01
PROVIDERS: Emergency Provider Emergency Medicine; PCP Family Medicine; Visit Provider Emergency Medicine
DX: S61.210A Laceration without foreign body of right index finger without damage to nail, initial encounter (principal); Z23 Encounter for immunization; X58.XXXA Exposure to other specified factors, initial encounter
CPT/HCPCS: 12001; 90471; 90715; 99282

== ENCOUNTER → 2024-02-08 | Outpatient (CLI) | payer OTHER, SELFPAY ==
[2024-02-08 11:03] LABS: Bacteria 0 SEEN /hpf (None Seen); Mucous, Urine 0 SEEN /hpf (<or=2+); Red Blood Cells-Urine 0 SEEN /hpf (0-5); Squamous Epithelial Cells - UA 0 SEEN /hpf (0-5); White Blood Cells 0 SEEN /hpf (0-5)
[2024-02-08 11:16] LABS: Color, Urine Yellow (Yellow); Glucose, Dipstick Normal (Normal); Ketone-Dipstick Negative (Negative); Leukocyte Esterase-Dipstick Negative /ul (Negative); Nitrite-Dipstick Negative (Negative); Occult Blood-Urine Negative /ul (Negative); Protein-Dipstick Negative (Negative); Urine Bilirubin Dipstick Negative (Negative); Urine Clarity Clear (Clear); Urine Urobilinogen Normal (Normal)
== END | disposition home or self-care (01) ==
PROVIDERS: PCP Family Medicine; Referring Provider Nurse Practitioner; Visit Provider Nurse Practitioner
DX: L29.3 Anogenital pruritus, unspecified (principal)
CPT/HCPCS: 81001; 87086; 87491; 87591

== ENCOUNTER → 2024-02-12 | Outpatient (CLI) | payer OTHER, SELFPAY | END | disposition home or self-care (01) | LOC: MFPLAB 11:45 | PROVIDERS: PCP Family Medicine; Visit Provider Family Medicine | DX: Z00.00 Encounter for general adult medical examination without abnormal findings (principal) ==

== ENCOUNTER → 2024-02-16 | Outpatient (CLI) | payer OTHER, SELFPAY ==
--- NOTE | 2024-02-16 10:35 | RAD_ITS ---
STUDY: X-RAY - ABDOMEN/PELVIS REASON FOR EXAM: Male, 28 years old. Abdominal pain. TECHNIQUE: AP supine and upright views of the abdomen and pelvis on 3 images. COMPARISON: None. FINDINGS: Normal visualized lung bases. Normal bowel gas pattern. Moderate amount of feces in the colon. The visualized liver, spleen and kidneys are grossly normal in size and morphology. Normal soft tissue structures. Normal visualized osseous structures. RAD/Abd Inc Decub and/or Erect IMPRESSION: No acute abnormality of the lower chest, abdomen or pelvis. Electronically Signed: Gil Cortes MD at 10:04 EDT ,
[2024-02-16 12:29] LABS: Erythrocyte Sedimentation Rate 1 mm/hr (0-20)
[2024-02-16 12:31] LABS: Absolute Lymphocyte Count 1.73 X10^3/uL (0.83-4.51); Absolute Neutrophil Count 5.5 X10^3/uL (2.0-7.7); Basophil# 0.04 X10^3/uL; Basophil% 0.5 % (0-1); Eosinophil# 0.03 X10^3/uL; Eosinophils% 0.4 % (0-5); Hematocrit 43.4 % (40-54); Hemoglobin 14.5 g/dL (13.0-16.5); Lymphocyte # 1.73 X10^3/ul (0.83-4.51); Lymphocyte % 22.2 % (19-41); Mean Corp Hgb Conc 33.4 g/dL (32-36); Mean Corpuscular Hgb 29.3 pg (27.0-32.0); Mean Corpuscular Volume 87.7 fL (80-94); Mean Platelet Vol. 10.4 fl (6.2-12.0); Monocyte% 6.4 % (0-10); NRBC Flagged by Analyzer 0 % (0-5); Neutrophil # 5.46 X10^3/uL (2.7-7.7); Neutrophil % 69.9 % (47-70); Platelet Count 285 K/mm3 (150-450); RBC Distribution Width SD 38.5 fl (35.1-43.9); Red Blood Count 4.95 M/mm3 (4.6-6.2); White Blood Count 7.8 K/mm3 (4.4-11.0)
[2024-02-16 12:48] LABS: ALB/GLOB Ratio 1.2 RATIO (0.9-2.4); AST(SGOT) 16 U/L (15-37); Alanine Aminotransfer ALT/SGPT 24 U/L (16-61); Albumin, Serum 4.2 g/dL (3.2-5.0); Alkaline Phosphatase 74 U/L (45-117); Anion Gap 3 (5-15); BUN 12 mg/dL (7-18); BUN/Creat Ratio 11.1 RATIO (10-20); Calcium,Total 9.3 mg/dL (8.5-10.1); Chloride 107 mmol/L (98-107); Creatinine, Serum 1.08 mg/dL (0.70-1.30); EST Glomerular Filtration Rate 85 mL/min (>60); Est Glom Filt Rate - Afr Amer 103 mL/min (>60); Globulin 3.5 g/dL (2.2-4.2); Glucose 95 mg/dL (74-106); Protein, Total 7.7 g/dL (6.4-8.2); Sodium Level 141 mmol/L (136-145)
[2024-02-16 13:09] LABS: HIV - WCH Non-Reactive (Nonreactive)
[2024-02-17 20:08] LABS: HCV Quant. RNA PCR HCV Not Detected IU/mL (.); HSV 1 IgG < 0.91 index (0.00-0.90); HSV 2 IgG < 0.91 index (0.00-0.90)
== END | disposition home or self-care (01) ==
LOC: MTLAB 10:32
PROVIDERS: PCP Family Medicine; Referring Provider Family Medicine; Visit Provider Family Medicine
DX: R10.9 Unspecified abdominal pain (principal); Z71.1 Person with feared health complaint in whom no diagnosis is made
CPT/HCPCS: 36415; 74019; 80053; 85025; 85652; 86695; 86696; 86703; 87522

== ENCOUNTER 2024-02-22 21:37 | Emergency (ER) | payer OTHER, SELFPAY ==
[2024-02-22 21:38] VITALS: BP 149/99; PULSE 73; RESP 18; TEMP 36.7; O2SAT 98; BMI 26.3
[2024-02-22] MEDS: Dicyclomine 10 MG Capsule 20 MG PO (22:40)
[2024-02-22] MEDS: Pantoprazole Sodium 20 MG Tablet PO (22:40)
--- NOTE | 2024-02-22 23:37 | EDS_ITS ---
HPI HPI - GI History of Present Illness Chief Complaint: Abd Pain Narrative Narrative: 28-year-old male with history of abdominal pain for about a month. He states initially it started with a urinary symptom however he has had urinalysis, STD studies, HIV and all this has been negative. He complains of left-sided abdominal pain and epigastric pain. This is a fairly constant pain that he has although he states that it is worse after eating. He states that he does eat a fast food diet and eats things like pizza, hamburgers, sandwiches. He states that about 15 minutes after he eats he gets worsening epigastric pain and burning and sharp pain in the left side of his abdomen. He denies any fevers, chills. He is not vomiting and sometimes he does get a little nauseous. Denies constipation or diarrhea. He states that his primary care physician also has done lab work which is all been normal. He had an x-ray of his abdomen. He has not had any endoscopy. He is no longer having any urinary symptoms. [facility] Medical History Urethral discharge in male Home Medications dicyclomine 20 mg tablet 20 mg PO TID PRN abdominal cramps #60 tabs 02/22/24 [Rx Last Taken Unknown] omeprazole 20 mg capsule,delayed release 20 mg PO DAILY #60 CAPSULES 02/22/24 [Rx Last Taken Unknown] Allergy/AdvReac Type Severity Reaction Status Date / Time No Known Allergies Allergy Verified 02/22/24 21:38 Social History Smoking Status: Never smoker ROS ROS ED Constitutional Constitutional ED: Denies chills, fever(s) or sweats Eyes Eyes: Denies blurry vision or change in vision ENT ENT ED: Denies ear pain or sore throat Cardiovascular Cardiovascular: Denies chest pain, palpitations or racing heartbeat Respiratory/Chest Respiratory/Chest: Denies cough, dyspnea or sputum Gastrointestinal Gastrointestinal: Reports abdominal pain, nausea and other Details: Dyspepsia ; Denies constipation, diarrhea or vomiting Genitourinary Genitourinary ED: Denies dysuria, hematuria or urinary frequency Musculoskeletal Musculoskeletal: Denies arthralgias, myalgias or neck pain Integumentary Denies abscess, Abrasions or rash Neurologic Neurologic: Denies headache(s), paresthesias or weakness Psychiatric Psychiatric: Denies anxiety, depression, suicidal ideation or suicidal thoughts Endocrine Endocrinology: Denies polydipsia or polyuria EXAM Physical Exam Const Vital Signs: 02/22/24 21:38 Temperature 98.1 F Temperature Source Temporal Pulse Rate 73 Respiratory Rate 18 Blood Pressure 149/99 H Blood Pressure Mean 115 Pulse Ox 98 Oxygen Delivery Method Room Air Positive well nourished General Appearance ED: NAD; Negative for pallor HEENT Reports moist mucous membranes normocephalic Eyes PERRL and EOMs intact bilaterally Neck no lymphadenopathy Resp normal respiratory effort Cardio regular rate and regular rhythm GI non-tender, non-distended and no masses Palpation: soft; Negative for guarding, rigid or hepatomegaly Back/Spine no CVA tenderness Neuro CN's II-XII intact bilaterally Sensorium / Orientation: alert Motor Exam: strength 5/5 throughout Psych mental status grossly normal Skin no wounds General Skin Exam: Negative for jaundice or pallor MDM MDM MDM Narrative Medical decision making narrative: 28-year-old male presenting with abdominal pain. He states that it has been ongoing for over a month now. He states that he does eat a fast food diet he is always eating this way. He states that over the last month the pain has been progressively worse that it is sharp in the left upper quadrant as well as burning and it happens about 15 minutes after he eats and then he has a nagging dull pain after this. Denies any other GI symptoms such as diarrhea or constipation. Has not been febrile. He had lab work done as well as imaging and in the form of an x-ray. Today his vitals are normal. His abdominal exam is normal. We discussed his diet at length as a possible source as he states that he eats [employer] and pizza on a regular basis and this is the most likely cause for his abdominal cramping and dyspepsia. I did offer lab work and imaging if he thought he this was necessary although I did explain to him that his abdominal exam is benign and I probably would have had him modify his diet first before doing more of a workup. He was amenable to trying this. I will place him on a PPI and he was given some Bentyl to help with crampy pain. He will modify his diet. I did give him a referral to Dr. Weber should he still want this. I do not believe he needs any lab work or imaging at this point. Patient will return as needed. Impression: 1. Abdominal pain 2. Dyspepsia Lab Data Attestation: I reviewed the patient's lab results. Discharge Plan Triage Chief Complaint: Abd Pain ED Provider: Jose De Jesus Stapleton Dx/Rx/DC Orders Instructions: ED Abdominal Pain Unkn Cause Male... Prescriptions: New omeprazole 20 mg capsule,delayed release(DR/EC) 20 mg PO DAILY Qty: 60 0RF dicyclomine 20 mg tablet 20 mg PO TID PRN (Reason: abdominal cramps) Qty: 60 0RF Primary Care Provider: Michael Malagon Referrals: Michael Malagon MD [Primary Care Provider] - Stas Weber DO [Med Staff - Active Staff] - 3-5 Days Disposition Disposition: Home, Self Care Discharge Date/Time: 02/22/24 22:48
== END 2024-02-22 22:48 | disposition home or self-care (01) ==
PROVIDERS: Emergency Provider Student in an Organized Health Care Education/Training Program; PCP Family Medicine; Visit Provider Student in an Organized Health Care Education/Training Program
DX: R10.13 Epigastric pain (principal)
CPT/HCPCS: 99282